=== PATIENT | male | born 2005 | race Caucasian/White ===

== ENCOUNTER 2024-01-15 07:52 | Inpatient (IN) ==
--- NOTE | 2024-01-15 08:43 | Emergency Department Note ---
Impression & Plan Acute appendicitis, Abdominal pain, Leukocytosis ED Provider Note NAME: ADAIR ANNE AGE: 18 SEX: M : 2005 ARRIVES VIA: Walk-In INFORMANT: Patient ED PROVIDER(S): Hema Ignacio DO CHIEF COMPLAINT: RLQ abd pain HPI: Patient is a 18-year-old male who presents the ER for periumbilical abdominal pain that started last night around 7 PM. It migrated to the right lower quadrant around 7 AM. Associate with nausea and 1 episode of vomiting. Denies any headache or change in vision. No chest pain or shortness of breath. No dysuria, urgency, or frequency. He has never had this pain before. No previous abdominal surgeries. Pain is worse with movement and improves with rest. ADDITIONAL HISTORY OBTAINED: Per HPI Chronic Medical/Social Conditions Affecting Care: Per HPI PAST MEDICAL HISTORY:See Below PAST SURGICAL HISTORY:See Below FAMILY HISTORY:See Below SOCIAL HISTORY:See Below HOME MEDICATIONS:See Below ALLERGIES:See Below VITALS:See Below PHYSICAL EXAMINATION: GENERAL: Sitting up in bed, alert, well appearing, well nourished, no distress, non-toxic EYE EXAM: normal conjunctiva. OROPHARYNX:mucous membranes are moist NECK: supple, no nuchal rigidity, no adenopathy, non-tender LUNGS: Clear to auscultation. Normal chest wall mechanics HEART: no murmurs, S1 normal and S2 normal ABDOMEN: abdomen soft, TTP in RLQ, normo-active bowel sounds, no masses, no rebound or guarding. UPPER EXTREMITIES: upper extremities are grossly normal. LOWER EXTREMITIES: No pitting edema. NEURO EXAM: Normal sensorium, cranial nerves II-XII grossly intact, normal speech, no gross weakness of arms, no gross weakness of legs. MEDICAL DECISION MAKING: Patient is a 18-year-old male who presents ER for right lower quadrant abdominal pain. IV was established blood work was obtained. Labs show leukocytosis of 14,000. No significant anemia. BMP with a slightly elevated glucose at 157. LFTs were unremarkable. T. bili was slightly up at 2.2. UA was clean. He was given IV fluids, IV morphine, IV Zofran and IV cefoxitin following the CT confirming acute appendicitis. He was updated bedside discussed with general surgery and taken to the OR. Consults/Care Managements Discussions: Per [facility] Triage Nursing notes reviewed. Limited review of prior medical records performed Vital Signs: reviewed and remarkable for tachy Differential diagnosis: Differential diagnoses includes but is not limited to gastritis, peptic ulcer disease, GERD, gallbladder disease, pancreatitis, small bowel obstruction, appendicitis, diverticulitis, hernia, urinary tract infection, torsion, perforation, trauma, infectious. ER treatment provided: See below Diagnostics interpreted by me include EKG and cardiac monitoring as listed below: -Cardiac Monitoring: An order was placed for continuous cardiac monitoring. The monitor shows a rate of 100 with sinus rhythm. -ECG: none -Laboratory studies:Interpreted by me as stated above in MDM and shown below. Imaging studies: Xrays: As interpreted by me:none CTs show: CT per my preliminary interpretation of the abdomen pelvis shows inflammation in the right lower quadrant CT abdomen pelvis was shows good appendicitis Procedures:none Critical Care: None Past Med/Surg History Surgical History (Updated 01/15/24 @ 14:29 by Jes Lester RN) History of laparoscopic appendectomy (01/15/24) Laparoscopic Appendectomy(Not Applicable) - Atif Voss, History of nasal surgery Social History Smoking Status: Never smoker Second Hand Exposure: No; Do You Dip or Chew Tobacco: No; Tobacco Cessation Education Requested by Patient: No Hx Alcohol Use: Yes Alcohol type: beer and hard liquor Hx Substance Use: No Preferred Language: Latvian 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: No Beliefs That Will Affect Care: None Current Living Situation: Other Current Living Situation Comment: college dormitory Other Information That Helps Us Care for You: No Feels Safe at Home: Yes Safety Concerns: Feels Safe At This Time Assistive Devices: Glasses Allergies Allergies Allergy/AdvReac Type Severity Reaction Status Date / Time pollen extracts Allergy Sneezing Verified 01/15/24 10:18 Home Meds Previous Rx's Medication Instructions Recorded oxycodone-acetaminophen 5 mg-325 1 - 2 tab PO .q4-6h PRN pain, for 01/15/24 mg tablet (Percocet) initial therapy, max 6 tabs per day #12 tabs Results & Data (ED) Vital Signs Vital Signs - 24 hr 01/15/24 08:03 01/15/24 09:38 01/15/24 10:04 Temperature 36.8 C Temperature Source Temporal Artery Scan Pulse Rate 101 H 88 78 Pulse Rate [Right Finger] Pulse Rhythm Regular Pulse Rhythm [Right Finger] Pulse Strength [Right Finger] Respiratory Rate 20 18 Respiratory Effort / Characteristics Non-Labored Spontaneous Respiratory Depth Normal Respiratory Pattern Blood Pressure 143/88 H 138/79 Blood Pressure [Left Arm] Blood Pressure Mean 106 Blood Pressure Mean [Left Arm] Blood Pressure Position [Left Arm] Pulse Oximetry 97 98 Oxygen Delivery Method Room Air Room Air Sepsis Recent Fever Within 48 Hours No Sepsis New/Unexplained Change in Mental Status No Sepsis Action Taken by Nursing No Action Required 01/15/24 10:10 Temperature 36.8 C Temperature Source Oral Pulse Rate Pulse Rate [Right Finger] 111 H Pulse Rhythm Pulse Rhythm [Right Finger] Regular Pulse Strength [Right Finger] Normal Respiratory Rate 20 Respiratory Effort / Characteristics Non-Labored Spontaneous Respiratory Depth Normal Respiratory Pattern Regular Blood Pressure Blood Pressure [Left Arm] 148/87 H Blood Pressure Mean Blood Pressure Mean [Left Arm] 107 Blood Pressure Position [Left Arm] Lying Pulse Oximetry 98 Oxygen Delivery Method Room Air Sepsis Recent Fever Within 48 Hours Sepsis New/Unexplained Change in Mental Status Sepsis Action Taken by Nursing Laboratory Data 01/15/24 08:20 01/15/24 08:20 Lab Results 01/15/24 01/15/24 Range/Units 08:20 09:04 WBC 14.64 H (4.8-10.8) K/ul RBC 5.71 (4.70-6.10) M/uL Hgb 16.7 (14.0-18.0) g/dl Hct 49.6 (42.0-52.0) % MCV 86.9 (80.0-100.0) fL MCH 29.2 (25.0-34.0) pg MCHC 33.7 (32.0-36.0) g/dL RDW Std Deviation 39.2 (36.4-46.3) fL RDW Coeff of Trevon 12.4 (11.5-14.5) % Plt Count 291 (130-400) K/uL MPV 9.3 L (9.4-12.4) fL Immature Gran % (Auto) 0.5 % Neut % (Auto) 87.4 % Lymph % (Auto) 7.7 % [place] % (Auto) 4.2 % Eos % (Auto) 0.1 % Baso % (Auto) 0.1 % Neut # (Auto) 12.79 H (1.40-6.50) K/uL Lymph # (Auto) 1.13 L (1.20-3.40) K/uL [place] # (Auto) 0.62 H (0.11-0.59) K/uL Eos # (Auto) 0.01 (0.00-0.50) K/uL Baso # (Auto) 0.02 (0.00-0.20) K/uL Immature Gran # (Auto) 0.07 (0.01-0.20) K/uL Sodium 136 (136-145) mmol/L Potassium 4.0 (3.5-5.1) mmol/L Chloride 103 (98-107) mmol/L Carbon Dioxide 23 (21-32) mmol/L Anion Gap 10 (3-11) BUN 13 (6-23) mg/dl Creatinine 0.83 (0.6-1.4) mg/dl Est Cr Clr Drug Dosing 179.8 ml/min Est GFR ( Amer) 147.8 ml/min Est GFR (Non-Af Amer) 127.6 ml/min BUN/Creatinine Ratio 15.7 (10-20) Glucose 157 H (70-99(Fasting)) mg/dl Calcium 9.7 (8.6-10.3) mg/dl Total Bilirubin 2.2 H (0.2-1.0) mg/dl AST 19 (13-39) U/L ALT 23 (7-52) U/L Alkaline Phosphatase 87 (34-104) U/L Total Protein 8.1 (6.0-8.3) gm/dl Albumin 4.8 (3.4-5.0) gm/dl Globulin 3.3 (2.5-4.0) gm/dl Albumin/Globulin Ratio 1.5 (0.9-2) Lipase 16 (11-82) U/L Urine Color Yellow Urine Appearance Cloudy A (Clear) Urine pH 5.5 (4.5-7.5) Ur Specific [place] 1.029 (1.000-1.030) Urine Protein 1+ H (Negative) Urine Glucose (UA) Negative (Negative) Urine Ketones 3+ H (Negative) Urine Blood Negative (Negative) Urine Nitrite Negative (Negative) Urine Bilirubin Negative (Negative) Urine Urobilinogen Negative (Negative) Ur Leukocyte Esterase Negative (Negative) Urine WBC (Auto) 1-5 (0-5) /hpf Urine RBC (Auto) 0-4 (0-4) /hpf U Hyaline Cast (Auto) 1-5 (0-5) /lpf U Epithel Cells (Auto) 10-20 H (0-5) /lpf Urine Bacteria (Auto) Negative (Negative) Administered Medications Lactated Ringer's (Lr) 1,000 mls @ 80 mls/hr IV .[id number] ENRIQUETA Stop: 02/14/24 13:03 Last Admin: 01/15/24 14:16 Dose: 80 mls/hr Documented By: [facility] Discontinued Medications Bupivacaine HCl/Epinephrine Bitart (Bupivacaine/Epinephrine 0.5% Mpf 1:200,000 30 Ml Vial) Confirm Administered Dose 30 ml .ROUTE .STK-MED ONE Stop: 01/15/24 09:56 Last Admin: 01/15/24 11:12 Dose: 30 ml Documented By: IVELISSE Sodium Chloride (Nss) 1,000 mls @ 999 mls/hr IV .Q1H1M ONE Stop: 01/15/24 09:41 Last Infusion: 01/15/24 14:55 Dose: Infused Documented By: [facility] Admin: 01/15/24 09:01 Dose: 999 mls/hr Documented By: ALEKS Cefoxitin Sodium (Mefoxin) 2,000 mg in 60 mls @ 100 mls/hr IV NOW STA Stop: 01/15/24 09:45 Last Infusion: 01/15/24 14:56 Dose: Infused Documented By: [facility] Admin: 01/15/24 09:23 Dose: 100 mls/hr Documented By: MMZ Lactated Ringer's (Lr) 1,000 mls @ 15 mls/hr IV .Q24H [facility] Stop: 02/14/24 10:14 Last Infusion: 01/15/24 10:31 Dose: Infused Documented By: Admin: 01/15/24 10:14 Dose: 15 mls/hr Documented By: ISHAAN Sodium Chloride (Nss) 1,000 mls @ 15 mls/hr IV .Q24H [facility] Stop: 01/16/24 10:59 Last Admin: 01/15/24 14:55 Dose: Not Given Documented By: [facility] Ioversol (Optiray 320 100ml) 94 ml IV ONCE ONE Stop: 01/15/24 08:50 Last Admin: 01/15/24 08:50 Dose: 94 ml Documented By: BRY Ketorolac Tromethamine (Ketorolac Tromethamine 15 Mg/Ml Vial) 15 mg IV NOW ONE Stop: 01/15/24 08:42 Last Admin: 01/15/24 08:59 Dose: 15 mg Documented By: NA Morphine Sulfate (Morphine Sulfate 10 Mg/Ml Carp/Vial) 6 mg IV NOW STA Stop: 01/15/24 09:11 Last Admin: 01/15/24 09:22 Dose: 6 mg Documented By: DERRICK Ondansetron HCl (Ondansetron Inj 2 Mg/Ml 2 Ml Vial) 4 mg IV NOW STA Stop: 01/15/24 08:42 Last Admin: 01/15/24 08:59 Dose: 4 mg Documented By: NA Imaging Data Radiologist's Impression: Abdomen/Pelvis CT 01/15/24 08:[address] WITH IV CONTRAST CT DOSE: 1560.12 mGy.cm HISTORY: Right lower quadrant abdominal pain. TECHNIQUE: Multiaxial CT images of the abdomen and pelvis were performed following the use of intravenous contrast. A dose lowering technique was utilized adhering to the principles of ALARA. COMPARISON STUDY: None. FINDINGS: The lung bases are clear. No pneumoperitoneum. No pneumatosis. No acute fractures identified. Bilateral L5 spondylolysis with associated grade 1 anterolisthesis. The liver, gallbladder, pancreas, spleen, adrenal glands, and kidneys are unremarkable. No hydronephrosis. Main portal vein is patent. Normal caliber abdominal aorta. No retroperitoneal or pelvic lymphadenopathy. The bladder is unremarkable. Trace pelvic free fluid. No evidence for a small bowel obstruction. Distended and thick-walled appendix with periappendiceal fat stranding consistent with acute appendicitis. The appendix measures up to 13 mm in diameter and appears contain a few small appendicoliths. Trace fluid within the right lower quadrant is noted. No perforation or abscess identified this time. IMPRESSION: Acute appendicitis as described above. ACT 112: Negative or not required by law. Electronically signed by: Rivera Dubose M.D. 01/15/2024 9:05 AM Discharge Plan Visit Data Chief Complaint: GI Assessment ED Provider: Hema Ignacio Discharge Problem: Acute appendicitis, Abdominal pain, Leukocytosis Discharge Instructions Interventions: ED Discharge Assessment Last Done: 01/15/24 10:04 Discharge Problem: Acute appendicitis Qualifiers: Acute appendicitis type: unspecified acute appendicitis type Qualified Code(s): K35.80 - Unspecified acute appendicitis Abdominal pain Qualifiers: Abdominal location: unspecified location Qualified Code(s): R10.9 - Unspecified abdominal pain Leukocytosis Qualifiers: Leukocytosis type: unspecified Qualified Code(s): D72.829 - Elevated white blood cell count, unspecified
[2024-01-15 08:47] LABS: Basophils # (auto) 0.02 K/uL (0.00-0.20); Basophils % (auto) 0.1 %; Eosinophils # (auto) 0.01 K/uL (0.00-0.50); Eosinophils % (auto) 0.1 %; Hematocrit (blood only) 49.6 % (42.0-52.0); Hemoglobin 16.7 g/dl (14.0-18.0); Immature Granulocytes # (auto) 0.07 K/uL (0.01-0.20); Immature Granulocytes % (auto) 0.5 %; Lymphocytes # (auto) 1.13 K/uL (1.20-3.40); Lymphocytes % (auto) 7.7 %; Mean Corpuscular Hemoglobin 29.2 pg (25.0-34.0); Mean Corpuscular Hgb Conc 33.7 g/dL (32.0-36.0); Mean Corpuscular Volume 86.9 fL (80.0-100.0); Mean Platelet Volume 9.3 fL (9.4-12.4); Monocytes # (auto) 0.62 K/uL (0.11-0.59); Monocytes % (auto) 4.2 %; Neutrophils # (auto) 12.79 K/uL (1.40-6.50); Neutrophils % (auto) 87.4 %; Platelet Count 291 K/uL (130-400); RDW Coefficient of Variation 12.4 % (11.5-14.5); RDW Standard Deviation 39.2 fL (36.4-46.3); Red Blood Count 5.71 M/uL (4.70-6.10); White Blood Count 14.64 K/ul (4.8-10.8)
[2024-01-15] MEDS: OPTIRAY 320 100ml IV ONE (08:50)
[2024-01-15 08:59] LABS: Albumin Globulin Ratio 1.5 (0.9-2); Albumin Level 4.8 gm/dl (3.4-5.0); BUN Creatinine Ratio 15.7 (10-20); Bilirubin,Total 2.2 mg/dl (0.2-1.0); Calcium 9.7 mg/dl (8.6-10.3); Creatinine Clr Calc Pharmacy 179.8 ml/min; Est GFR (African American) 147.8 ml/min; Est GFR (Non-African American) 127.6 ml/min; Globulin 3.3 gm/dl (2.5-4.0); Total Protein 8.1 gm/dl (6.0-8.3)
[2024-01-15] MEDS: ONDANSETRON INJ 2 MG/ML 2 ML VIAL IV STA (08:59)
[2024-01-15] MEDS: KETOROLAC TROMETHAMINE 15 MG/ML VIAL IV ONE (08:59)
[2024-01-15] MEDS: SODIUM CHLORIDE 0.9% 1,000 ML IV ONE (09:01)
--- NOTE | 2024-01-15 09:06 | CT Scan Report ---
ABDOMEN AND PELVIS CT WITH IV CONTRAST CT DOSE: 1560.12 mGy.cm HISTORY: Right lower quadrant abdominal pain. TECHNIQUE: Multiaxial CT images of the abdomen and pelvis were performed following the use of intrave nous contrast. A dose lowering technique was utilized adhering to the principles of ALARA. COMPARISON STUDY: None. FINDINGS: The lung bases are clear. No pneumoperitoneum. No pneumatosis. No acute fractures identifie d. Bilateral L5 spondylolysis with associated grade 1 anterolisthesis. The liver, gallbladder, pancre as, spleen, adrenal glands, and kidneys are unremarkable. No hydronephrosis. Main portal vein is lópez nt. Normal caliber abdominal aorta. No retroperitoneal or pelvic lymphadenopathy. The bladder is unre markable. Trace pelvic free fluid. No evidence for a small bowel obstruction. Distended and thick-wal led appendix with periappendiceal fat stranding consistent with acute appendicitis. The appendix mercedes ures up to 13 mm in diameter and appears contain a few small appendicoliths. Trace fluid within the r ight lower quadrant is noted. No perforation or abscess identified this time. IMPRESSION: Acute appendicitis as described above. ACT 112: Negative or not required by law. Electronically signed by: Rivera Dubose M.D. 01/15/2024 9:05 AM
[2024-01-15 09:18] LABS: Appearance Urine Cloudy (Clear); Bacteria Urine Automated Negative (Negative); Bilirubin Urine Negative (Negative); Blood Urine Negative (Negative); Color Urine Yellow; Glucose Urine UA Negative (Negative); Ketones Urine 3+ (Negative); Leukocyte Esterase Urine Negative (Negative); Nitrite Urine Negative (Negative); Protein Urine 1+ (Negative); RBC Urine Automated 0-4 /hpf (0-4); Specific Gravity Urine 1.029 (1.000-1.030); Urobilinogen Urine Negative (Negative); pH Urine 5.5 (4.5-7.5)
[2024-01-15] MEDS: MoRPHine SULFATE 10 MG/ML CARP/VIAL IV STA (09:22)
[2024-01-15] MEDS: cefOXitin 2,000 MG/60 ML BAG IV STA (09:23)
[2024-01-15] MEDS ORDERED: PROPOFOL IV EMULSION 10 MG/ML 20 ML VIAL IV ONE (09:39)
[2024-01-15] MEDS ORDERED: ROCURONIUM BROMIDE 10 MG/ML 5 ML VIAL IV ONE (09:39)
[2024-01-15] MEDS ORDERED: LIDOCAINE 2% 2 ML VIAL/AMP(20MG/ML) INFIL ONE (09:39)
[2024-01-15] MEDS ORDERED: ONDANSETRON INJ 2 MG/ML 2 ML VIAL ONE (09:39)
[2024-01-15] MEDS ORDERED: fentaNYL citrate PF 100 MCG/2 ML VIAL ONE ×2 (09:39→10:52)
[2024-01-15] MEDS ORDERED: DEXAMETHASONE SOD INJ 4 MG/ML VIAL ONE (09:39)
[2024-01-15] MEDS ORDERED: MIDAZOLAM HCL 1 MG/ML 2ML VIAL ONE (09:39)
[2024-01-15] MEDS ORDERED: ACETAMINOPHEN 1000 MG/100 ML IV IV ONE (09:41)
--- NOTE | 2024-01-15 09:42 | History & Physical Report ---
Date of Service January 15, 2024 Assessment & Plan (1) Acute appendicitis: Plan: This is a 18yM with no significant PMH who presents to the [facility] ED on 01/15/24 with complaints of abdominal pain since last night that has now localized to the RLQ this AM. Pain associated with nausea/vomiting. He presented to the ER for further evaluation. A CT a/p was performed that revealed evidence of acute appendicitis. Patient denies fevers/chills, no change in bowel habits, no CP/ SOB, and no prior abdominal surgical history. WBC 14.6, Hbg 16. Initial HR 100, now 80s. He is afebrile. On exam patient's abdomen is soft with ttp in the RLQ. History, labs/imaging, exam all consistent with acute appendicitis. Surgical intervention advised and patient agreeable with the plan. Keep NPO, pre-op abx given, and we will schedule patient for lap appy this AM with Dr. Voss. as above. hx imaging c/w acute appendicitis. discussed options /risks ( bleeding/infection/injury to another organ/dvt/pe/mi/cva etc...). questions answered. will proceed janessa with lap appy History of Present Illness Primary Care Provider: [facility] This is a 18yM with no significant PMH who presents to the [facility] ED on 01/15/24 with complaints of abdominal pain. Patient started last night, began in his belly button, but now localized to the RLQ. Rated his pain an 8/10 in severity prior to receiving pain medication. He also endorsed nausea/vomiting overnight. He presented to the ER for further evaluation. A CT a/p was performed that revealed evidence of acute appendicitis. Patient denies fevers/chills, no change in bowel habits, no CP/SOB, and no prior abdominal surgical history. Nothing to eat since yesterday evening. Allergies Allergy/AdvReac Type Severity Reaction Status Date / Time No Known Allergies Allergy Unverified 01/15/24 09:56 Past Med/Surg History Social History Smoking Status: Never smoker Feels Safe at Home: Yes Review of Systems Constitutional: no fever and no chills Respiratory: no dyspnea Cardiovascular: no chest pain Gastrointestinal: + abdominal pain, + nausea and + vomitin g; no change in bowel habits Physical Exam Physical Exam: awake/alert, no distress Constitutional: well developed and well nourished; no acute distress Respiratory: normal respiratory effort Gastrointestinal (Abdomen): Inspection/Auscultation: abdomen not distended Percussion/Palpation: + abdomen tender (ttp in rlq) and abdomen soft Results & Data Results & Data Vital Signs (Past 12 Hours) Vital Signs Temp Pulse Resp BP Pulse Ox O2 Del Method 01/15/24 09:38 88 01/15/24 08:03 98.2 F 101 H 20 143/88 H 97 Room Air Diagnostic Findings ABDOMEN AND PELVIS CT WITH IV CONTRAST CT DOSE: 1560.12 mGy.cm HISTORY: Right lower quadrant abdominal pain. TECHNIQUE: Multiaxial CT images of the abdomen and pelvis were performed following the use of intravenous contrast. A dose lowering technique was utilized adhering to the principles of ALARA. COMPARISON STUDY: None. FINDINGS: The lung bases are clear. No pneumoperitoneum. No pneumatosis. No acute fractures identified. Bilateral L5 spondylolysis with associated grade 1 anterolisthesis. The liver, gallbladder, pancreas, spleen, adrenal glands, and kidneys are unremarkable. No hydronephrosis. Main portal vein is patent. Normal caliber abdominal aorta. No retroperitoneal or pelvic lymphadenopathy. The bladder is unremarkable. Trace pelvic free fluid. No evidence for a small bowel obstruction. Distended and thick-walled appendix with periappendiceal fat stranding consistent with acute appendicitis. The appendix measures up to 13 mm in diameter and appears contain a few small appendicoliths. Trace fluid within the right lower quadrant is noted. No perforation or abscess identified this time. IMPRESSION: Acute appendicitis as described above. ACT 112: Negative or not required by law. Electronically signed by: Rivera Dubose M.D. 01/15/2024 9:05 AM PG Care Time/CCT Total # of Minutes Spent Total Time Spent with Patient: Total time spent is greater than 50% in coordination of care (as documented) at patient's floor/unit and/or counseling patient: Coding Level of Care Code 46595 INT INP/OBS CARE 2/55MIN Diagnoses Acute appendicitis K35.80
--- NOTE | 2024-01-15 10:01 | Anesthesiology Consultation ---
Date of Service January 15, 2024 Assessment & Plan (1) Encounter for pre-operative examination: Chart Review Chart Review: Acceptable Risk for Surgery and Patient NOT seen in Pre Admission Testing Consults Requested none History Surgery Operation Date: 01/15/24 08:20 Proposed Procedures p Laparoscopic Appendectomy - Atif Voss DO Height/Weight Height: 5 ft 10 in Weight: 112.5 kg Allergies Allergy/AdvReac Type Severity Reaction Status Date / Time No Known Allergies Allergy Unverified 01/15/24 09:56 Social History Smoking Status: Never smoker Physical Exam Vital Signs Last Vital Signs Temp 98.2 F 01/15/24 08:03 Pulse 101 H 01/15/24 08:03 Resp 20 01/15/24 08:03 BP 143/88 H 01/15/24 08:03 Pulse Ox 97 01/15/24 08:03 O2 Del Method Room Air 01/15/24 08:03 Testing Laboratory Results 01/15/24 08:20 01/15/24 08:20 Urine Color Yellow 01/15/24 09:04 Urine Appearance Cloudy (Clear) A 01/15/24 09:04 Urine pH 5.5 (4.5-7.5) 01/15/24 09:04 Ur Specific [place] 1.029 (1.000-1.030) 01/15/24 09:04 Urine Protein 1+ (Negative) H 01/15/24 09:04 Urine Glucose (UA) Negative (Negative) 01/15/24 09:04 Urine Ketones 3+ (Negative) H 01/15/24 09:04 Urine Nitrite Negative (Negative) 01/15/24 09:04 Ur Leukocyte Esterase Negative (Negative) 01/15/24 09:04 Urine WBC (Auto) 1-5 /hpf (0-5) 01/15/24 09:04 Urine RBC (Auto) 0-4 /hpf (0-4) 01/15/24 09:04 U Hyaline Cast (Auto) 1-5 /lpf (0-5) 01/15/24 09:04 U Epithel Cells (Auto) 10-20 /lpf (0-5) H 01/15/24 09:04 Urine Bacteria (Auto) Negative (Negative) 01/15/24 09:04
[2024-01-15] MEDS: LACTATED RINGER'S 1,000 ML IV SCH ×2 (10:14→14:16)
[2024-01-15] MEDS ORDERED: ONDANSETRON INJ 2 MG/ML 2 ML VIAL IV PRN (10:23)
[2024-01-15] MEDS ORDERED: ePHEDrine sulfate 50 MG/ML AMP IV PRN (10:23)
[2024-01-15] MEDS ORDERED: ATROPINE SULFATE 0.1 MG/ML 10ML SYR IV PRN (10:23)
[2024-01-15] MEDS ORDERED: fentaNYL citrate PF 100 MCG/2 ML VIAL IV PRN (10:23)
[2024-01-15] MEDS ORDERED: oxyCODONE/ACETAMINOPHEN 5mg/325mg TAB PO PRN (10:57)
[2024-01-15] MEDS ORDERED: MoRPHine SULFATE 2 MG/ML CARP IV PRN (10:57)
[2024-01-15] MEDS ORDERED: KETOROLAC 30 MG/ML VIAL ONE (11:11)
[2024-01-15] MEDS ORDERED: SUGAMMADEX SODIUM 200 MG/2 ML VIAL IV ONE (11:12)
[2024-01-15] MEDS: BUPIVACAINE/EPINEPHRINE 0.5% MPF 1:200,000 30 ML VIAL ONE (11:12)
--- NOTE | 2024-01-15 11:19 | Operative Report ---
PG Post Operative Report Pre & Post Diagnosis Operation Date: 01/15/24 08:20 Pre-Op Diagnosis: Acute appendicitis Post-Op Diagnosis: Acute appendicitis with perforation I identified the patient and participated in the time-out.: Yes Procedure Operation Date: 01/15/24 08:20 Actual Procedures p Laparoscopic Appendectomy(Not Applicable) - Atif Voss DO Surgeon Atif Voss DO Chief Scientific Officer artie sexton Estimated Blood Loss 10 Findings Consistent with Post-Op Diagnosis Specimens appendix Description of Procedure After informed consent was obtained the patient was taken to the operating room and placed in supine position. After successful intubation a Bean catheter was placed and the left arm was tucked. A Bean catheter was inserted sterilely. I began by making a periumbilical incision with an 11 blade scalpel and carried this down through the soft tissue using electrocautery. The anterior rectus fascia was opened using electrocautery and 2 #0 Vicryl stay sutures were placed. The peritoneum was elevated using hemostats and incised under direct vision using a Metzenbaum scissor. A finger sweep was performed. A 12 mm Mccarthy trocar was placed and the abdomen was insufflated to 18 mmHg. A laparoscope was inserted and the abdomen was examined in 360. A suprapubic 5 mm port and a left lower quadrant 12 mm port were placed under direct vision. The patient was air planed to the left as well as placed in a slight Trendelenburg position. We began by looking in the right lower quadrant. We were able to readily identify the appendix and it was grossly inflamed. When I peeled back the omentum there was a perforation in the tip. There is no stool spillage but there was a fair amount of purulent fluid in the right lower quadrant as well as pelvis. We immediately irrigated and suctioned this out. I was able to use primarily blunt dissection to pull the appendix away from the right lower quadrant sidewall. I was then able to use a SATYA brown cartridge stapler to transect first the mesentery of the appendix followed by the appendix itself at its base with the cecum. It was then placed into an Endo Catch bag and removed from the camera port site. We thoroughly irrigated the right lower quadrant as well as the pelvis. There was adequate hemostasis. I ran the small bowel backwards from the terminal ileum for about 6 feet all of which other than some secondary inflammatory response was normal. All the peritoneal surfaces were normal. Small/ large bowel, liver, stomach etc. all appeared grossly normal. We did a final irrigation and then removed all the trochars and desufflated the abdomen. The fascia of the camera port was closed using 0 Vicryl in [id number] fashi on. Wounds were all irrigated and closed using 4-0 Monocryl. Marcaine was injected around them for postoperative analgesia and skin glue used as a dressing. The patient was awakened extubated and transferred to recovery in stable condition. My PORCELAIN ENAMEL REPAIRER statistical assistant was present through the entire case. She assisted with prepping the patient and helped with exposure for port placement, helped run the camera and helped with fascial/wound closure at the end of the procedure as well as dressing placement. I attest to the content of the Intraoperative Record and any orders documented therein. Any exceptions are noted below. I attest to the content of the Intraoperative Record and any orders documented therein. Any exceptions are noted below.
--- NOTE | 2024-01-15 12:13 | Anesthesiology Progress Note ---
Date of Service January 15, 2024 Anesthesia Post Procedure Vital Signs Vital Signs: Temp Pulse Pulse Pulse Resp BP BP 01/15/24 12:00 99.1 F 104 H 21 140/74 01/15/24 11:50 107 H 22 150/78 H 01/15/24 11:40 108 H 20 146/77 H 01/15/24 11:30 97.9 F 114 H 14 145/53 H 01/15/24 10:10 98.2 F 111 H 20 148/87 H 01/15/24 10:04 78 18 138/79 01/15/24 09:38 88 01/15/24 08:03 98.2 F 101 H 20 143/88 H Pulse Ox O2 Del Method O2 Flow Rate 01/15/24 12:00 94 Room Air 01/15/24 11:50 94 Room Air 01/15/24 11:40 97 Oxymask 6 01/15/24 11:30 95 Oxymask 10 01/15/24 10:10 98 Room Air 01/15/24 10:04 98 Room Air 01/15/24 09:38 01/15/24 08:03 97 Room Air Transfer of Care Handoff Completed per policy Notes Mental Status: alert / awake / arousable and participated in evaluation Patient Amnestic to Procedure: Yes Nausea / Vomiting: adequately controlled Pain: adequately controlled Airway Patency, RR, SpO2: stable & adequate BP & HR: stable & adequate Hydration State: stable & adequate Anesthetic Complications: no major complications apparent and Pt Satisfied with anesthetic care
[2024-01-15] MEDS: SODIUM CHLORIDE 0.9% 1,000 ML IV SCH (14:55)
[2024-01-15] MEDS: PIPERACILLIN/TAZOBACTAM 4.5 GM in DEXTROSE 5% MINI-B 100 ML IV SCH (16:05)
[2024-01-15] MEDS: ACETAMINOPHEN 325 MG TAB PO PRN (16:54)
[2024-01-15] MEDS: ONDANSETRON INJ 2 MG/ML 2 ML VIAL IV PRN (17:20)
[2024-01-15] MEDS: oxyCODONE/ACETAMINOPHEN 5mg/325mg TAB PO PRN (22:27)
[2024-01-16 07:43] LABS: Basophils # (auto) 0.01 K/uL (0.00-0.20); Basophils % (auto) 0.1 %; Eosinophils # (auto) 0.01 K/uL (0.00-0.50); Eosinophils % (auto) 0.1 %; Hematocrit (blood only) 35.8 % (42.0-52.0); Hemoglobin 12.2 g/dl (14.0-18.0); Immature Granulocytes # (auto) 0.04 K/uL (0.01-0.20); Immature Granulocytes % (auto) 0.3 %; Lymphocytes # (auto) 1.31 K/uL (1.20-3.40); Lymphocytes % (auto) 10.7 %; Mean Corpuscular Hemoglobin 29.6 pg (25.0-34.0); Mean Corpuscular Hgb Conc 34.1 g/dL (32.0-36.0); Mean Corpuscular Volume 86.9 fL (80.0-100.0); Mean Platelet Volume 9.4 fL (9.4-12.4); Monocytes # (auto) 1.18 K/uL (0.11-0.59); Monocytes % (auto) 9.6 %; Neutrophils % (auto) 79.2 %; Platelet Count 254 K/uL (130-400); RDW Coefficient of Variation 12.7 % (11.5-14.5); RDW Standard Deviation 40.5 fL (36.4-46.3); Red Blood Count 4.12 M/uL (4.70-6.10); White Blood Count 12.25 K/ul (4.8-10.8)
[2024-01-16 08:43] LABS: Calcium 8.8 mg/dl (8.6-10.3); Potassium 3.9 mmol/L (3.5-5.1)
[2024-01-16 08:49] LABS: BUN Creatinine Ratio 14.4 (10-20); Creatinine Clr Calc Pharmacy 165.8 ml/min; Est GFR (Non-African American) 123.4 ml/min
--- NOTE | 2024-01-16 08:52 | Surgery Progress Note ---
Date of Service January 16, 2024 Assessment & Plan (1) Acute appendicitis: Plan: Patient reports he vomited last night clear liquids was given antiemetic and has been ok throughout the night has been tolerating sips of water denies nausea currently If vomits this AM will make NPO and give bowel rest Temp this AM 100.6 WBC 12 down from yesterday 14 Continue IV zosyn ambulating in halls without difficulty Dermabond to port sites CDI will continue to [facility] as above. doing ok. had some emesis last night. low grade temp.... likely mild ileus. will keep another 24 hours. stay on IV antibiotics and clears for now. recheck wbc tomorrow. Admission and Anticipated Discharge Date Admission Date: January 15, 2024 Subjective abd pain 3/10 vomited last night clear liquids denies fever, chills, cp , sob Review of Systems Constitutional: no chills Respiratory: no dyspnea Cardiovascular: no chest pain Gastrointestinal: + abdominal pain, + nausea and + vomitin g; no change in bowel habits Musculoskeletal: no muscle weakness Physical Exam Constitutional: no acute distress Respiratory: normal respiratory effort; no respiratory distress Cardiovascular: Rate/Rhythm: regular rate Gastrointestinal (Abdomen): Inspection/Auscultation: abdomen not distended Percussion/Palpation: + abdomen tender and abdomen soft Neurologic: moves all extremities Psychiatric: Orientation: alert and oriented x 3 Results & Data Vital Signs (Past 12 Hours) Vital Signs Temp Pulse Resp BP Pulse Ox O2 Del Method 01/16/24 07:53 100.6 F H 105 H 16 137/76 94 Room Air 01/16/24 02:53 98.3 F 96 H 16 128/62 93 Room Air 01/15/24 23:00 99.2 F 109 H 16 141/81 H 94 Room Air Results Complete Blood Count Results: RBC 4.12 M/uL (4.70-6.10) L 01/16/24 WBC 12.25 K/ul (4.8-10.8) H 01/16/24 Hgb 12.2 g/dl (14.0-18.0) L 01/16/24 Hct 35.8 % (42.0-52.0) L 01/16/24 Plt Count 254 K/uL (130-400) 01/16/24 Results BMP Results: Sodium 139 mmol/L (136-145) 01/16/24 Potassium 3.9 mmol/L (3.5-5.1) 01/16/24 Chloride 105 mmol/L (98-107) 01/16/24 Carbon Dioxide 28 mmol/L (21-32) 01/16/24 Anion Gap 6 (3-11) 01/16/24 BUN 13 mg/dl (6-23) 01/16/24 Creatinine 0.90 mg/dl (0.6-1.4) 01/16/24 Glucose 118 mg/dl (70-99(Fasting)) H 01/16/24 PG Care Time/CCT Total # of Minutes Spent Total Time Spent with Patient: Total time spent is greater than 50% in coordination of care (as documented) at patient's floor/unit and/or counseling patient: Coding Level of Care Code 85149 Post Operative Follow-Up Diagnoses Acute appendicitis K35.80 Acute appendicitis type: unspecified acute appendicitis type (1) Acute appendicitis Acute appendicitis type: unspecified acute appendicitis type Qualified Code(s): K35.80 - Unspecified acute appendicitis
[2024-01-16] MEDS ORDERED: PIPERACILLIN/TAZOBACTAM 4.5 GM in DEXTROSE 5% MINI-B 100 ML IV SCH (09:30)
[2024-01-17 07:43] LABS: Basophils # (auto) 0.01 K/uL (0.00-0.20); Basophils % (auto) 0.1 %; Eosinophils # (auto) 0.04 K/uL (0.00-0.50); Eosinophils % (auto) 0.4 %; Hematocrit (blood only) 32.9 % (42.0-52.0); Hemoglobin 11.1 g/dl (14.0-18.0); Immature Granulocytes # (auto) 0.05 K/uL (0.01-0.20); Immature Granulocytes % (auto) 0.5 %; Lymphocytes # (auto) 1.86 K/uL (1.20-3.40); Lymphocytes % (auto) 17.6 %; Mean Corpuscular Hemoglobin 29.9 pg (25.0-34.0); Mean Corpuscular Hgb Conc 33.7 g/dL (32.0-36.0); Mean Corpuscular Volume 88.7 fL (80.0-100.0); Mean Platelet Volume 9.2 fL (9.4-12.4); Monocytes # (auto) 0.75 K/uL (0.11-0.59); Monocytes % (auto) 7.1 %; Neutrophils # (auto) 7.88 K/uL (1.40-6.50); Neutrophils % (auto) 74.3 %; Platelet Count 214 K/uL (130-400); RDW Coefficient of Variation 12.2 % (11.5-14.5); Red Blood Count 3.71 M/uL (4.70-6.10); White Blood Count 10.59 K/ul (4.8-10.8)
[2024-01-17 08:04] LABS: BUN Creatinine Ratio 11.2 (10-20); Calcium 8.8 mg/dl (8.6-10.3); Creatinine Clr Calc Pharmacy 152.3 ml/min; Est GFR (Non-African American) 111.3 ml/min; Potassium 3.8 mmol/L (3.5-5.1)
--- NOTE | 2024-01-17 12:16 | Surgery Progress Note ---
<Statement entered by Nicholas Laureano DO - 01/18/24 14:56> This case was discussed with the surgical PA Date of Service January 17, 2024 Assessment & Plan (1) Acute appendicitis: Plan: POD#1 laparoscopic appendectomy WBC normalized to 10.5 (12). No fevers overnight He denies nausea/vomiting, tolerates liquids. + gas/BM per patient Will advance to regular diet Pain manageable with Tylenol at this point If does well after lunch, pain controlled he may discharge to home Will prescribe course of PO abx to complete Dispo instructions reviewed, f/u in the office within 2 weeks Admission and Anticipated Discharge Date Admission Date: January 15, 2024 Subjective Patient says he is bored in the hospital. Currently tolerating liquids without nausea/vomiting. He is asking for more to eat. Reports + gas and BMs. Says pain is controlled, just hurts when pressed upon. Physical Exam Physical Exam: awake/alert, no distress Respiratory: normal respiratory effort Gastrointestinal (Abdomen): Inspection/Auscultation: + abdominal surgical incision (c/d/i with skin glue, no signs of infection) Percussion/Palpation: + abdomen tender (ttp in the RLQ and LLQ) and abdomen soft Results & Data Vital Signs (Past 12 Hours) Vital Signs Temp Pulse Resp BP Pulse Ox O2 Del Method 01/17/24 07:55 Room Air 01/17/24 07:22 98.4 F 109 H 18 126/68 95 Room Air PG Care Time/CCT Total # of Minutes Spent Total Time Spent with Patient: Total time spent is greater than 50% in coordination of care (as documented) at patient's floor/unit and/or counseling patient: Coding Level of Care Code 31727 Post Operative Follow-Up Diagnoses Acute appendicitis K35.80 Acute appendicitis type: unspecified acute appendicitis type (1) Acute appendicitis Acute appendicitis type: unspecified acute appendicitis type Qualified Code(s): K35.80 - Unspecified acute appendicitis
--- NOTE | 2024-01-21 12:50 | Discharge Summary ---
Date of Service January 17, 2024 Admission HPI Per Admitting Provider This is a 18yM with no significant PMH who presents to the [facility] ED on 01/15/24 with complaints of abdominal pain. Patient started last night, began in his belly button, but now localized to the RLQ. Rated his pain an 8/10 in severity prior to receiving pain medication. He also endorsed nausea/vomiting overnight. He presented to the ER for further evaluation. A CT a/p was performed that revealed evidence of acute appendicitis. Patient denies fevers/chills, no change in bowel habits, no CP/SOB, and no prior abdominal surgical history. Nothing to eat since yesterday evening. Principal Diagnosis acute appendicitis Discharge Exam Constitutional no acute distress Respiratory normal respiratory effort; no respiratory distress Cardiovascular Rate/Rhythm: regular rate Gastrointestinal (Abdomen) Inspection/Auscultation: abdomen not distended Percussion/Palpation: + abdomen tender and abdomen soft Neurologic moves all extremities Psychiatric Orientation: alert and oriented x 3 Discharge Data Allergies Allergy/AdvReac Type Severity Reaction Status Date / Time pollen extracts Allergy Sneezing Verified 01/15/24 10:18 Consultations 01/15/24 09:10 ED Decision to Admit Stat Procedures Performed Operation Date: 01/15/24 08:20 Actual Procedures p Laparoscopic Appendectomy(Not Applicable) - Atif Voss, Ordered Studies 01/15/24 08:41 CT Abd and Pelvis [CT abd pelvis IV con only] Stat Hospital Course (1) Acute appendicitis: Patient is a pleasant 18 yo male that presented to the [facility] ER 01/15/24 with c/o abdominal pain. A CT scan of the abdomen/pelvis showed acute appendicitis. He was started on IV antibiotics and taken to the OR for a laparoscopic appendectomy with Dr. Voss. Intraoperatively it was noted that the appendix had a perforation. Post operatively he was admitted to the hospital for continued IV antibiotics, care and observation. His diet was advanced to regular and his pain was controlled with PO medication. On post operative day two he was deemed stable for discharge, WBC wnl, VSS. He was given a prescription for a 10 day course of antibiotics and pain medication. He verbalized understanding of discharge instructions, return precautions and follow up appointments. He was discharged on 01/17/24. Total Time Total Time Spent Total Time Spent (In Minutes): 25 Discharge Plan Discharge Items Patient Disposition: Home - Self-Care Reason For Visit: s/p appendectomy Discharge Diagnosis: laparoscopic appendectomy Activity: Per Instructions section Lifting: No more than 10 pounds Bathing Comment: may shower starting 01/16/24; no soaking in tubs/pools x 2 weeks Exercise/Sports: Wait until after follow-up appointment Non-emergency contact: Surgeon Call non-emergency contact if: you have any medication questions, your symptoms worsen, your pain is worsening, you have a fever, your temperature is above 101.5, your wound has increased redness, your wound has increased drainage and your wound pain has increased Follow-up/Referrals: Atif Voss, DO [Surgeon] - 01/29/24 11:30 am (Please call to schedule follow up in clinic within 2 weeks ) PCP,NO [Physician] - Diet: Regular Addtl Attending Provider Instructions: You have skin glue over your incisions called dermabond. you may shower with this on. It will tend to dissolve and fall off within a couple weeks. Do not pick at the skin glue You may purchase Ibuprofen over the counter if needed for additional pain control over the next few days. Take per manufacturers instructions Please complete the full course of antibiotic prescribed to you Pending Studies at Discharge: Yes Studies:: surgical pathology Stand-Alone Forms: My [facility] [employer], Work/School Release Medications and DC Order Prescriptions: New oxycodone-acetaminophen [Percocet] 5-325 mg tablet 1 - 2 tab PO .q4-6h PRN (Reason: pain, for initial therapy, max 6 tabs per day) Qty: 12 0RF amoxicillin-pot clavulanate 875-125 mg tablet 1 tab PO Q12H MDD 2 10 Days Qty: 20 0RF Discharge Orders: Discharge Order (Routine); Ordered 01/17/24 Ordered By: Thelma Wilkinson/Other Patient Handouts: Appendectomy, What Is Appendicitis?, Surgery for Appendicitis Admission Data Admit Date/Time: 01/15/24 11:25 Attending Provider: Atif Voss Admit Provider: Atif Voss Primary Care Provider: [place] Other Providers: Atif Voss Other Interventions: Discharge Summary Assessment (RN) Last Done: 01/17/24 13:06 Coding Level of Care Code 83403 IN/OBS DISCH 30 MIN/LESS Diagnoses Acute appendicitis K35.80 Acute appendicitis type: unspecified acute appendicitis type
== END 2024-01-17 13:53 | disposition home or self-care (01) | DRG 398 ==
LOC: ED 07:52 → 3W 10:10 → OR 10:31 → 3W 11:25

== ENCOUNTER 2024-01-23 18:59 | Inpatient (IN) ==
--- NOTE | 2024-01-23 19:32 | Emergency Department Note ---
History of Present Illness General Chief Complaint: Abdominal Pain Stated Complaint: POST-OP APPENDECTOMY, PELVIC PAIN, DIARRHEA Time Seen by Provider: 01/23/24 19:14 History of Present Illness Provider Complaint: abdominal pain Onset (ago): 5 day(s) Location: RLQ and suprapubic Severity: moderate Maximum Pain Intensity: 7 Current Pain Intensity: 7 Quality: + stabbing and + sharp Relieved By: + nothing Exacerbated By: + nothing Context: + recent antibiotic use (Currently on amoxicillin) and + recent surgery/procedure (Appendectomy on January 15, 2024); no foreign travel, no possible food poisoning, no sick contacts or no recent injury Associated Symptoms: + nausea, + vomiting, + diarrhea, + fever and + chills; no constipation, no dysuria, no hematemesis, no hematochezia, no melena, no hematuria, no headache, no chest pain and no breathing difficulty Home Medications Medication Instructions Recorded Confirmed Type oxycodone-acetaminophen 5 mg-325 1 - 2 tab PO .q4-6h PRN pain, for 01/15/24 Rx mg tablet (Percocet) initial therapy, max 6 tabs per day #12 tabs amoxicillin 875 mg-potassium 1 tab PO Q12H infection 10 days 01/16/24 Rx clavulanate 125 mg tablet #20 tabs Allergies Allergy/AdvReac Type Severity Reaction Status Date / Time pollen extracts Allergy Sneezing Verified 01/15/24 10:18 Past Med/Surg History Medical History No pertinent family history No pertinent past medical history Surgical History History of laparoscopic appendectomy (01/15/24) Laparoscopic Appendectomy(Not Applicable) - Atif Voss DO History of nasal surgery Social History Smoking Status: Never smoker Second Hand Exposure: No; Do You Dip or Chew Tobacco: No; Hx Alcohol Use: Yes Alcohol type: beer and hard liquor Hx Substance Use: No Preferred Language: Tanzanian Communication Ability: Effective Lacrosse Coach Required: No Beliefs That Will Affect Care: None Current Living Situation: Other Current Living Situation Comment: [employer] [facility] Feels Safe at Home: Yes Assistive Devices: None Physical Exam 2 Vital Signs: Vital Signs - 24 hr 01/23/24 19:07 01/23/24 19:57 01/23/24 20:00 Temperature 38.5 C H Temperature Source Oral Pulse Rate 133 H 117 H Pulse Rate [Left A pical] 117 H Respiratory Rate 18 18 15 Respiratory Effort / Characteristics Non-Labored Sponta neous Respiratory Depth Normal Respiratory Patter n Regular Blood Pressure 150/87 H 144/83 H Blood Pressure [Ri ght Arm] 143/87 H Blood Pressure Jami n 108 103 Blood Pressure Jami n [Right Arm] 105 Blood Pressure Pos ition Sitting Pulse Oximetry 97 97 98 Oxygen Delivery Me thod Room Air Room Air Room Air Sepsis Recent Feve r Within 48 Hours Yes Sepsis New/Unexpla ined Change in Men avel Status N/A Sepsis Action Take n by Nursing Physician Notified 01/23/24 20:11 01/23/24 20:30 Temperature Temperature Source Pulse Rate 117 H 120 H Pulse Rate [Left A pical] Respiratory Rate 21 Respiratory Effort / Characteristics Respiratory Depth Respiratory Patter n Blood Pressure 136/96 Blood Pressure [Ri ght Arm] Blood Pressure Jami n 109 Blood Pressure Jami n [Right Arm] Blood Pressure Pos ition Pulse Oximetry 99 Oxygen Delivery Me thod Room Air Sepsis Recent Feve r Within 48 Hours Sepsis New/Unexpla ined Change in Men avel Status Sepsis Action Take n by Nursing Physical Exam: Physical Exam HENT: Exam performed. -Head: Normocephalic and atraumatic. -Right Ear: External ear normal. No mastoid erythema -Left Ear: External ear normal. No mastoid erythema -Mouth/Throat: The oropharynx is clear and moist. No trismus in the jaw. No dental abscesses or uvula swelling. No oropharyngeal exudate or tonsillar abscesses. EYES: Conjunctivae and EOM are normal.Right eye exhibits no discharge. Left eye exhibits no discharge. No scleral icterus. NECK: Normal range of motion. Neck supple. No JVD present. No tracheal deviation and normal range of motion present. CV: Tachycardic rate, regular rhythm, normal heart sounds and intact distal pulses. There is no peripheral edema. Palpable radial pulses bue. PULM/CHEST: Effort normal and breath sounds normal. No respiratory distress. No stridor. She has no wheezes. She has no rales. -Chest Wall: She exhibits no tenderness. ABD: The abdomen is soft. Mild distension. There is tenderness in the suprapubic area and right lower quadrant. There is no rebound, no guarding : Circumcised. No lesions over the genitalia. No pain on palpation of the right or left testicle. No inguinal hernias bilaterally. MUSC/SKEL: Normal range of motion. There is no peripheral edema, tenderness or deformity. NEURO: Motor and sensation grossly intact. SKIN: Skin is warm and dry. She is not diaphoretic. PSYCH: She has a normal mood and affect. Behavior is normal. Judgment and thought content normal. Course Course 1913: The patient was evaluated in room C11. A complete history and physical exam was performed Cardiac monitoring: An order was placed for continuous cardiac monitoring. The monitor shows a rate of 130 with sinus tachycardia rhythm interpreted by ks Sepsis protocols initiated. Mason performed the patient be taken to CT scan. 1941: Spoke with general surgery Dr. Gutierrez who states to call her back with the CT results and she will evaluate the patient. 2009: Patient has a leukocytosis of 27.99. Lactic acid is within normal limits. Received a call from stat rad radiology Dr. Belcher. He stated that the patient had a 24 cm postoperative abscess going from the appendectomy site into the lower pelvis. Will contact general surgery and IR. Austin ordered for the patient. 2021: Spoke with Dr. Gutierrez who states she is parking and will be in to evaluate the patient. 2026: Received a [place] text message via secretary to board of commissioners from HELDER Wynne who stated he was unable to visualize the images at home and to speak with attending radiologist to discuss if this abscess can be drained here. 2034: Dr. Gutierrez at bedside evaluating patient. Spoke with Dr. Gamez radiology. We were able to connect Dr. Matt Gamez and I via telephone and Dr. Gamez reviewed the patient's images and stated that the patient could be kept here and they could drain the patient in the morning. Dr. Gutierrez was agreeable with this plan stated she would start the patient on IV antibiotics overnight. Dr. Gutierrez states she will put in orders for the patient and states to admit the patient to Dr. Voss service the patient's primary surgeon. 2039: Spoke with HELDER Wilson who states he spoke with radiology and they will plan on draining the patient in the morning. He asked that coagulation studies be sent on the patient and the patient be kept n.p.o. after midnight, Dr. Gutierrez was made aware. Administered Medications Sodium Chloride (Nss) 1,000 mls @ 999 mls/hr IV .Q1H1M ENRIQUETA Stop: 01/23/24 21:15 Last Admin: 01/23/24 20:21 Dose: 999 mls/hr Documented By: Infusion: 01/23/24 20:21 Dose: Infused Documented By: Admin: 01/23/24 19:54 Dose: 999 mls/hr Documented By: LEONOR Discontinued Medications Piperacillin Sod/Tazobactam Sod (Zosyn) 4.5 gm in 120 mls @ 240 mls/hr IV NOW ONE Stop: 01/23/24 20:40 Last Admin: 01/23/24 20:21 Dose: 240 mls/hr Documented By: DELILAH Ioversol (Optiray 320 100ml) 89 ml IV ONCE ONE Stop: 01/23/24 19:40 Last Admin: 01/23/24 19:40 Dose: 89 ml Documented By: BABAR Medical Decision Making Laboratory Data Attestation: I reviewed the patient's lab results. 01/23/24 19:20 01/23/24 19:20 Lab Results 01/23/24 01/23/24 01/23/24 Range/Units 19:20 19:32 19:55 WBC 27.99 H (4.8-10.8) K/ul RBC 4.40 L (4.70-6.10) M/uL Hgb 12.9 L (14.0-18.0) g/dl POC Hgb 13.6 L (14.0-18.0) g/dl Hct 37.7 L (42.0-52.0) % POC Hct 40 L (42-52) % MCV 85.7 (80.0-100.0) fL MCH 29.3 (25.0-34.0) pg MCHC 34.2 (32.0-36.0) g/dL RDW Std Deviation 37.5 (36.4-46.3) fL RDW Coeff of Trevon 11.9 (11.5-14.5) % Plt Count 465 H (130-400) K/uL MPV 8.9 L (9.4-12.4) fL Immature Gran % (Auto) 0.9 % Neut % (Auto) 84.5 % Lymph % (Auto) 6.8 % [place] % (Auto) 7.6 % Eos % (Auto) 0.0 % Baso % (Auto) 0.2 % Neut # (Auto) 23.63 H (1.40-6.50) K/uL Lymph # (Auto) 1.90 (1.20-3.40) K/uL [place] # (Auto) 2.13 H (0.11-0.59) K/uL Eos # (Auto) 0.01 (0.00-0.50) K/uL Baso # (Auto) 0.06 (0.00-0.20) K/uL Immature Gran # (Auto) 0.26 H (0.01-0.20) K/uL PT 12.5 H (9.0-12.0) Seconds INR 1.2 H (0.9-1.1) APTT 32 H (21-31) Seconds PTT Ratio 1.1 VBG pH (7.36-7.41) VBG pCO2 (38-50) mmHg VBG pO2 mmHg VBG HCO3 mmol/L VBG O2 Saturation % VBG Base Excess mEq/L POC Sodium 132 L (135-144) mmol/L Sodium 131 L (136-145) mmol/L POC Potassium 3.7 (3.3-5.0) mmol/L Potassium 3.7 (3.5-5.1) mmol/L POC Chloride 96 L (101-112) mmol/L Chloride 96 L (98-107) mmol/L Carbon Dioxide 25 (21-32) mmol/L POC Total CO2 23 L (24-31) mmol/L Anion Gap 10 (3-11) POC Anion Gap 17.0 (16-25) mmol/L POC BUN 8 (7-18) mg/dl BUN 10 (6-23) mg/dl Creatinine 0.81 (0.6-1.4) mg/dl POC Creatinine 0.8 mg/dl Est Cr Clr Drug Dosing 186.8 ml/min Est GFR ( Amer) 149.3 ml/min Est GFR (Non-Af Amer) 128.8 ml/min BUN/Creatinine Ratio 12.3 (10-20) Glucose 132 H (70-99(Fasting)) mg/dl POC Glucose (other) 140 H (70-99) mg/dl Lactate 1.3 (0.4-2.0) mmol/L Calcium 9.3 (8.6-10.3) mg/dl POC Ioniz Calcium Edie 1.11 mmol/l Magnesium 1.8 (1.7-2.4) mg/dl Total Bilirubin 1.7 H (0.2-1.0) mg/dl Direct Bilirubin 0.5 H (0-0.2) mg/dl AST 14 (13-39) U/L ALT 21 (7-52) U/L Alkaline Phosphatase 73 (34-104) U/L Troponin I High Sens 6.7 (0-20) pg/ml Total Protein 7.5 (6.0-8.3) gm/dl Albumin 3.8 (3.4-5.0) gm/dl Procalcitonin 0.45 (0-0.5) ng/ml Urine Color Dark Yellow Urine Appearance Clear (Clear) Urine pH 6.0 (4.5-7.5) Ur Specific [place] 1.023 (1.000-1.030) Urine Protein 2+ H (Negative) Urine Glucose (UA) Negative (Negative) Urine Ketones 3+ H (Negative) Urine Blood 1+ H (Negative) Urine Nitrite Negative (Negative) Urine Bilirubin Negative (Negative) Urine Urobilinogen Negative (Negative) Ur Leukocyte Esterase Negative (Negative) Urine WBC (Auto) 5-10 H (0-5) /hpf Urine RBC (Auto) 0-4 (0-4) /hpf U Hyaline Cast (Auto) 1-5 (0-5) /lpf U Epithel Cells (Auto) 20-30 H (0-5) /lpf Urine Bacteria (Auto) Negative (Negative) SARS-CoV-2 (PCR) NEGATIVE (Negative) Influenza Type A (PCR) Negative (Neg) Influenza Type B (PCR) Negative (Neg) RSV (RT-PCR) Negative (Neg) 01/23/24 Range/Units 20:21 WBC (4.8-10.8) K/ul RBC (4.70-6.10) M/uL Hgb (14.0-18.0) g/dl POC Hgb (14.0-18.0) g/dl Hct (42.0-52.0) % POC Hct (42-52) % MCV (80.0-100.0) fL MCH (25.0-34.0) pg MCHC (32.0-36.0) g/dL RDW Std Deviation (36.4-46.3) fL RDW Coeff of Trevon (11.5-14.5) % Plt Count (130-400) K/uL MPV (9.4-12.4) fL Immature Gran % (Auto) % Neut % (Auto) % Lymph % (Auto) % [place] % (Auto) % Eos % (Auto) % Baso % (Auto) % Neut # (Auto) (1.40-6.50) K/uL Lymph # (Auto) (1.20-3.40) K/uL [place] # (Auto) (0.11-0.59) K/uL Eos # (Auto) (0.00-0.50) K/uL Baso # (Auto) (0.00-0.20) K/uL Immature Gran # (Auto) (0.01-0.20) K/uL PT (9.0-12.0) Seconds INR (0.9-1.1) APTT (21-31) Seconds PTT Ratio VBG pH 7.44 H (7.36-7.41) VBG pCO2 37 L (38-50) mmHg VBG pO2 33 mmHg VBG HCO3 25 mmol/L VBG O2 Saturation < 60.0 % VBG Base Excess 1.1 mEq/L POC Sodium (135-144) mmol/L Sodium (136-145) mmol/L POC Potassium (3.3-5.0) mmol/L Potassium (3.5-5.1) mmol/L POC Chloride (101-112) mmol/L Chloride (98-107) mmol/L Carbon Dioxide (21-32) mmol/L POC Total CO2 (24-31) mmol/L Anion Gap (3-11) POC Anion Gap (16-25) mmol/L POC BUN (7-18) mg/dl BUN (6-23) mg/dl Creatinine (0.6-1.4) mg/dl POC Creatinine mg/dl Est Cr Clr Drug Dosing ml/min Est GFR ( Amer) ml/min Est GFR (Non-Af Amer) ml/min BUN/Creatinine Ratio (10-20) Glucose (70-99(Fasting)) mg/dl POC Glucose (other) (70-99) mg/dl Lactate (0.4-2.0) mmol/L Calcium (8.6-10.3) mg/dl POC Ioniz Calcium Edie mmol/l Magnesium (1.7-2.4) mg/dl Total Bilirubin (0.2-1.0) mg/dl Direct Bilirubin (0-0.2) mg/dl AST (13-39) U/L ALT (7-52) U/L Alkaline Phosphatase (34-104) U/L Troponin I High Sens (0-20) pg/ml Total Protein (6.0-8.3) gm/dl Albumin (3.4-5.0) gm/dl Procalcitonin (0-0.5) ng/ml Urine Color Urine Appearance (Clear) Urine pH (4.5-7.5) Ur Specific [place] (1.000-1.030) Urine Protein (Negative) Urine Glucose (UA) (Negative) Urine Ketones (Negative) Urine Blood (Negative) Urine Nitrite (Negative) Urine Bilirubin (Negative) Urine Urobilinogen (Negative) Ur Leukocyte Esterase (Negative) Urine WBC (Auto) (0-5) /hpf Urine RBC (Auto) (0-4) /hpf U Hyaline Cast (Auto) (0-5) /lpf U Epithel Cells (Auto) (0-5) /lpf Urine Bacteria (Auto) (Negative) SARS-CoV-2 (PCR) (Negative) Influenza Type A (PCR) (Neg) Influenza Type B (PCR) (Neg) RSV (RT-PCR) (Neg) Imaging Data Radiologist's Impression: Abdomen/Pelvis CT 01/23/24 19:16 CR Exam(s): CT ABDOMEN + PELVIS With Contrast IV Amt: 89 ml optiray 320 EXAM: CT Abdomen and Pelvis With Intravenous Contrast CLINICAL HISTORY: Reason for exam: post operative fever abd pain. TECHNIQUE: Axial computed tomography images of the abdomen and pelvis with intravenous contrast. CTDI is 27.99 mGy and DLP is 1555.45 mGy-cm. Automated exposure control was utilized for the study. A dose lowering technique was utilized adhering to the principles of ALARA. CONTRAST: Patient received 89 ml optiray 320 of IV contrast COMPARISON: No relevant prior studies available. FINDINGS: There is linear subsegmental atelectasis of the right lung base. Liver, color, pancreas, spleen, adrenal glands, and kidneys are unremarkable. Aorta is normal in caliber. There are mildly enlarged mesenteric lymph nodes, notably in the ileocolic region. Patient has undergone interval appendectomy. There is a large rim- enhancing fluid collection extending from the appendectomy site into the lower pelvis and measuring roughly 12 cm TR x 9 cm AP x 24 cm CC. The pelvic portion of the collection encircles the rectosigmoid junction. There is no free pneumoperitoneum. Wall thickening in the rectosigmoid colon suggests proctocolitis. There is no bowel obstruction. Urinary bladder appears inflamed. Prostate is normal in size. Skeleton appears intact. IMPRESSION: 1. Large postoperative abscess extending from the appendectomy site to the lower pelvis and measuring roughly 12 x 9 x 24 cm. 2. Pelvic component of the abscess encircles the rectosigmoid colon, which appears inflamed, concerning for proctocolitis. 3. Urinary bladder appears inflamed, correlate with urinalysis for possible cystitis. Communications: Call Doctor Other Electronically signed by: Markus Workman M.D. 01/23/24 20:[address] [facility] Narrative 1913: The patient was evaluated in room C11. A complete history and physical exam was performed Cardiac monitoring: An order was placed for continuous cardiac monitoring. The monitor shows a rate of 130 with sinus tachycardia rhythm interpreted by ks Sepsis protocols initiated. Mason performed the patient be taken to CT scan. 1941: Spoke with general surgery Dr. Gutierrez who states to call her back with the CT results and she will evaluate the patient. 2009: Patient has a leukocytosis of 27.99. Lactic acid is within normal limits. Received a call from [facility] rad radiology Dr. Belcher. He stated that the patient had a 24 cm postoperative abscess going from the appendectomy site into the lower pelvis. Will contact general surgery and IR. Austin ordered for the patient. 2021: Spoke with Dr. Gutierrez who states she is parking and will be in to evaluate the patient. 2026: Received a [place] text message via secretary to board of commissioners from HELDER Wynne who stated he was unable to visualize the images at home and to speak with attending radiologist to discuss if this abscess can be drained here. 2034: Dr. Gutierrez at bedside evaluating patient. Spoke with Dr. Gamez radiology. We were able to connect Dr. Matt Gamez and I via telephone and Dr. Gamez reviewed the patient's images and stated that the patient could be kept here and they could drain the patient in the morning. Dr. Gutierrez was agreeable with this plan stated she would start the patient on IV antibiotics overnight. Dr. Gutierrez states she will put in orders for the patient and states to admit the patient to Dr. Voss service the patient's primary surgeon. 2039: Spoke with HELDER Wilson who states he spoke with radiology and they will plan on draining the patient in the morning. He asked that coagulation studies be sent on the patient and the patient be kept n.p.o. after midnight, Dr. Gutierrez was made aware. Impression & Plan Abscess, intra-abdominal, postoperative Discharge Plan Visit Data Chief Complaint: Abdominal Pain Stated Complaint: POST-OP APPENDECTOMY, PELVIC PAIN, DIARRHEA ED Provider: Kit Mc Discharge Problem: Abscess, intra-abdominal, postoperative Patient Disposition: Admitted As Inpatient Forms Stand Alone Forms: [facility] Prescriptions Prescriptions: No Action oxycodone-acetaminophen [Percocet] 5-325 mg tablet 1 - 2 tab PO .q4-6h PRN (Reason: pain, for initial therapy, max 6 tabs per day) Qty: 12 0RF amoxicillin-pot clavulanate 875-125 mg tablet 1 tab PO Q12H MDD 2 10 Days Qty: 20 0RF Referrals Referrals: [facility] [Primary Care Provider] -
[2024-01-23] MEDS: OPTIRAY 320 100ml IV ONE (19:40)
[2024-01-23 19:44] LABS: iSTAT Creatinine 0.8 mg/dl; iSTAT Hemoglobin 13.6 g/dl (14.0-18.0); iSTAT Ionized Calcium 1.11 mmol/l; iSTAT Potassium 3.7 mmol/L (3.3-5.0)
[2024-01-23 19:48] LABS: Appearance Urine Clear (Clear); Bacteria Urine Automated Negative (Negative); Bilirubin Urine Negative (Negative); Blood Urine 1+ (Negative); Color Urine Dark Yellow; Epithelial Cell Urine Auto 20-30 /lpf (0-5); Glucose Urine UA Negative (Negative); Ketones Urine 3+ (Negative); Leukocyte Esterase Urine Negative (Negative); Nitrite Urine Negative (Negative); Protein Urine 2+ (Negative); RBC Urine Automated 0-4 /hpf (0-4); Specific Gravity Urine 1.023 (1.000-1.030); Urobilinogen Urine Negative (Negative)
[2024-01-23 19:49] LABS: Hematocrit (blood only) 37.7 % (42.0-52.0); Hemoglobin 12.9 g/dl (14.0-18.0); Mean Corpuscular Hemoglobin 29.3 pg (25.0-34.0); Mean Corpuscular Hgb Conc 34.2 g/dL (32.0-36.0); Mean Corpuscular Volume 85.7 fL (80.0-100.0); Mean Platelet Volume 8.9 fL (9.4-12.4); Platelet Count 465 K/uL (130-400); RDW Coefficient of Variation 11.9 % (11.5-14.5); RDW Standard Deviation 37.5 fL (36.4-46.3); White Blood Count 27.99 K/ul (4.8-10.8)
[2024-01-23] MEDS: SODIUM CHLORIDE 0.9% 1,000 ML IV SCH (19:54)
--- NOTE | 2024-01-23 20:05 | CT Scan Report ---
Exam(s): CT ABDOMEN + PELVIS With Contrast IV Amt: 89 ml optiray 320 EXAM: CT Abdomen and Pelvis With Intravenous Contrast CLINICAL HISTORY: Reason for exam: post operative fever abd pain. TECHNIQUE: Axial computed tomography images of the abdomen and pelvis with intravenous contrast. CTDI is 27.99 mGy and DLP is 1555.45 mGy-cm. Automated exposure control was utilized for the study. A dose lowering technique was utilized adhering to the principles of ALARA. CONTRAST: Patient received 89 ml optiray 320 of IV contrast COMPARISON: No relevant prior studies available. FINDINGS: There is linear subsegmental atelectasis of the right lung base. Liver, color, pancreas, spleen, adrenal glands, and kidneys are unremarkable. Aorta is normal in caliber. There are mildly enlarged mesenteric lymph nodes, notably in the ileocolic region. Patient has undergone interval appendectomy. There is a large rim- enhancing fluid collection extending from the appendectomy site into the lower pelvis and measuring roughly 12 cm TR x 9 cm AP x 24 cm CC. The pelvic portion of the collection encircles the rectosigmoid junction. There is no free pneumoperitoneum. Wall thickening in the rectosigmoid colon suggests proctocolitis. There is no bowel obstruction. Urinary bladder appears inflamed. Prostate is normal in size. Skeleton appears intact. IMPRESSION: 1. Large postoperative abscess extending from the appendectomy site to the lower pelvis and measuring roughly 12 x 9 x 24 cm. 2. Pelvic component of the abscess encircles the rectosigmoid colon, which appears inflamed, concerning for proctocolitis. 3. Urinary bladder appears inflamed, correlate with urinalysis for possible cystitis. Communications: Call Doctor Other Electronically signed by: Markus Workman M.D. 01/23/24 20:04 PM
[2024-01-23 20:08] LABS: Albumin Level 3.8 gm/dl (3.4-5.0); BUN Creatinine Ratio 12.3 (10-20); Bilirubin Direct 0.5 mg/dl (0-0.2); Bilirubin,Total 1.7 mg/dl (0.2-1.0); Calcium 9.3 mg/dl (8.6-10.3); Creatinine Clr Calc Pharmacy 186.8 ml/min; Est GFR (African American) 149.3 ml/min; Est GFR (Non-African American) 128.8 ml/min; Magnesium 1.8 mg/dl (1.7-2.4); Potassium 3.7 mmol/L (3.5-5.1); Total Protein 7.5 gm/dl (6.0-8.3)
[2024-01-23 20:11] LABS: Basophils # (auto) 0.06 K/uL (0.00-0.20); Basophils % (auto) 0.2 %; Eosinophils # (auto) 0.01 K/uL (0.00-0.50); Immature Granulocytes # (auto) 0.26 K/uL (0.01-0.20); Immature Granulocytes % (auto) 0.9 %; Lymphocytes % (auto) 6.8 %; Monocytes # (auto) 2.13 K/uL (0.11-0.59); Monocytes % (auto) 7.6 %; Neutrophils # (auto) 23.63 K/uL (1.40-6.50); Neutrophils % (auto) 84.5 %
[2024-01-23 20:15] LABS: Troponin I High Sensitivity 6.7 pg/ml (0-20)
[2024-01-23] MEDS: PIPERACILLIN/TAZOBACTAM 4.5 GM/120 ML BAG IV ONE (20:21)
[2024-01-23 20:28] LABS: Base Excess VBG 1.1 mEq/L; HCO3 VBG 25 mmol/L; Oxygen Saturation VBG < 60.0 %; PCO2 VBG 37 mmHg (38-50); PO2 VBG 33 mmHg; pH VBG 7.44 (7.36-7.41)
[2024-01-23 20:38] LABS: INR 1.2 (0.9-1.1); Partial Thromboplastin Ratio 1.1; Partial Thromboplastin Time 32 Seconds (21-31); Prothrombin Time 12.5 Seconds (9.0-12.0)
[2024-01-23 20:40] LABS: Influenza A virus by PCR Negative (Neg); Influenza B virus by PCR Negative (Neg); RSV by PCR Negative (Neg); SARS CoV2 RNA(COVID-19) Ceph NEGATIVE (Negative)
[2024-01-23] MEDS ORDERED: MoRPHine SULFATE 2 MG/ML CARP IV PRN (20:45)
--- NOTE | 2024-01-23 20:45 | History & Physical Report ---
Date of Service January 23, 2024 Assessment & Plan (1) Abscess, intra-abdominal, postoperative: Plan: Large postop abscess appears amenable to perc drain. Discussed patient with interventional radiology who does feel as though perc drain can be done and will plan on doing it tomorrow. In interim, will start on IV antibiotics and IVF resuscitation. Plan IV pain meds, full liquid diet but npo after midnight. Discussed plan of care with patient's mother on the phone. All questions answered. Will admit. History of Present Illness Chief Complaint: abdominal pain and fever Primary Care Provider: [facility] 18 yr old man s/p lap appendectomy 8 days ago for perforated appendicitis who presents with 1-2 days of worsening right lower quadrant pain, fever to 38.5, tachycardia, overall not feeling well. Decreased appetite but no nausea or vomiting. Having loose bowel movements. Finding it difficult to urinate (cannot urinate while standing, only while sitting). Pain level is 7/10, worse with movement, better with pain medication. He was taking augmentin at home since surgery. Allergies Allergy/AdvReac Type Severity Reaction Status Date / Time pollen extracts Allergy Sneezing Verified 01/15/24 10:18 Home Medications Medication Instructions Recorded Confirmed Type oxycodone-acetaminophen 5 mg-325 1 - 2 tab PO .q4-6h PRN pain, for 01/15/24 Rx mg tablet (Percocet) initial therapy, max 6 tabs per day #12 tabs amoxicillin 875 mg-potassium 1 tab PO Q12H infection 10 days 01/16/24 Rx clavulanate 125 mg tablet #20 tabs Past Med/Surg History Medical History No pertinent family history No pertinent past medical history Surgical History History of laparoscopic appendectomy (01/15/24) Laparoscopic Appendectomy(Not Applicable) - Atif Voss, History of nasal surgery Social History Smoking Status: Never smoker Second Hand Exposure: No; Do You Dip or Chew Tobacco: No; Hx Alcohol Use: Yes Alcohol type: beer and hard liquor Hx Substance Use: No Preferred Language: Polish Communication Ability: Effective Ingot Stripper Required: No Beliefs That Will Affect Care: None Current Living Situation: Other Current Living Situation Comment: college dormitory Feels Safe at Home: Yes Assistive Devices: None Review of Systems Review of Systems: All systems reviewed & are unremarkable except as noted in HPI & below Physical Exam Constitutional: WD/WN, vitals as above tachycardic Eyes: PERRL, conjunctivae normal, anicteric sclerae Respiratory: normal respiratory effort, lungs clear to auscultation Cardiovascular: Rate/Rhythm: regular rhythm and + tachycardic Heart Sounds: no murmur Gastrointestinal (Abdomen): Inspection/Auscultation: abdomen normal to inspection, + abdomen distended (mild), normal bowel sounds and + abdominal surgical incision (clean) Percussion/Palpation: + abdomen tender (right mid to lower quadrant and pelvis) Musculoskeletal: no cyanosis or clubbing, extremities motor strength 5/5 Neurologic: no focal motor deficits Psychiatric: A+Ox3, euthymic affect Results & Data Results & Data Vital Signs (Past 12 Hours) Vital Signs Temp Pulse Pulse Resp BP BP Pulse Ox 01/23/24 20:30 120 H 21 136/96 99 01/23/24 20:11 117 H 01/23/24 20:00 117 H 15 144/83 H 98 01/23/24 19:57 117 H 18 143/87 H 97 01/23/24 19:07 38.5 C H 133 H 18 150/87 H 97 O2 Del Method 01/23/24 20:30 Room Air 01/23/24 20:11 01/23/24 20:00 Room Air 01/23/24 19:57 Room Air 01/23/24 19:07 Room Air Laboratory Results Abnormal lab results 01/23/24 01/23/24 01/23/24 Range/Units 19:20 19:32 20:21 WBC 27.99 H (4.8-10.8) K/ul RBC 4.40 L (4.70-6.10) M/uL Hgb 12.9 L (14.0-18.0) g/dl POC Hgb 13.6 L (14.0-18.0) g/dl Hct 37.7 L (42.0-52.0) % POC Hct 40 L (42-52) % Plt Count 465 H (130-400) K/uL MPV 8.9 L (9.4-12.4) fL Neut # (Auto) 23.63 H (1.40-6.50) K/uL [place] # (Auto) 2.13 H (0.11-0.59) K/uL Immature Gran # (Auto) 0.26 H (0.01-0.20) K/uL PT 12.5 H (9.0-12.0) Seconds INR 1.2 H (0.9-1.1) APTT 32 H (21-31) Seconds VBG pH 7.44 H (7.36-7.41) VBG pCO2 37 L (38-50) mmHg POC Sodium 132 L (135-144) mmol/L Sodium 131 L (136-145) mmol/L POC Chloride 96 L (101-112) mmol/L Chloride 96 L (98-107) mmol/L POC Total CO2 23 L (24-31) mmol/L Glucose 132 H (70-99(Fasting)) mg/dl POC Glucose (other) 140 H (70-99) mg/dl Total Bilirubin 1.7 H (0.2-1.0) mg/dl Direct Bilirubin 0.5 H (0-0.2) mg/dl Urine Protein 2+ H (Negative) Urine Ketones 3+ H (Negative) Urine Blood 1+ H (Negative) Urine WBC (Auto) 5-10 H (0-5) /hpf U Epithel Cells (Auto) 20-30 H (0-5) /lpf Diagnostic Findings CT scan personally reviewed and shows a large abscess occupying much of right lower quadrant and extending into pelvis.
[2024-01-23] MEDS: ONDANSETRON INJ 2 MG/ML 2 ML VIAL IV PRN (21:27)
[2024-01-23] MEDS: MoRPHine SULFATE 4 MG/ML 1 ML CARP\\VIAL IV PRN (21:27)
[2024-01-23 22:01] LABS: Hemoglobin 11.7 g/dl (14.0-18.0); Mean Corpuscular Hemoglobin 29.2 pg (25.0-34.0); Mean Corpuscular Hgb Conc 34.4 g/dL (32.0-36.0); Mean Corpuscular Volume 84.8 fL (80.0-100.0); Mean Platelet Volume 8.8 fL (9.4-12.4); Platelet Count 357 K/uL (130-400); RDW Standard Deviation 37.2 fL (36.4-46.3); Red Blood Count 4.01 M/uL (4.70-6.10); White Blood Count 23.65 K/ul (4.8-10.8)
[2024-01-23 22:21] LABS: Basophils # (auto) 0.05 K/uL (0.00-0.20); Basophils % (auto) 0.2 %; Dohle Bodies 1+; Eosinophils # (auto) 0.06 K/uL (0.00-0.50); Eosinophils % (auto) 0.3 %; Immature Granulocytes # (auto) 0.13 K/uL (0.01-0.20); Immature Granulocytes % (auto) 0.5 %; Lymphocytes # (auto) 1.31 K/uL (1.20-3.40); Lymphocytes % (auto) 5.5 %; Monocytes # (auto) 1.69 K/uL (0.11-0.59); Monocytes % (auto) 7.1 %; Neutrophils # (auto) 20.41 K/uL (1.40-6.50); Neutrophils % (auto) 86.4 %
[2024-01-23] MEDS: LACTATED RINGER'S 1,000 ML IV SCH (22:33)
[2024-01-23] MEDS: metroNIDAZOLE 500 MG/100 ML BAG IV SCH (23:11)
[2024-01-24] MEDS: PIPERACILLIN/TAZOBACTAM 4.5 GM in DEXTROSE 5% MINI-B 100 ML IV SCH (01:19)
--- NOTE | 2024-01-24 06:50 | XRay Report ---
XR chest 1V portable HISTORY: Sepsis COMPARISON: None. FINDINGS: No pneumothorax. There is mild elevation of the right hemidiaphragm. Right basilar linear d ensity favors subsegmental atelectasis. Otherwise, lungs are clear. The heart is normal in size. No a cute fractures. IMPRESSION: No acute process. ACT 112: Negative or not required by law. Electronically signed by: Rivera Dubose M.D. 01/24/2024 6:48 AM
[2024-01-24 07:28] LABS: Hematocrit (blood only) 34.3 % (42.0-52.0); Hemoglobin 11.7 g/dl (14.0-18.0); Mean Corpuscular Hemoglobin 29.3 pg (25.0-34.0); Mean Corpuscular Hgb Conc 34.1 g/dL (32.0-36.0); Mean Platelet Volume 9.1 fL (9.4-12.4); Platelet Count 366 K/uL (130-400); RDW Coefficient of Variation 12.2 % (11.5-14.5); RDW Standard Deviation 38.7 fL (36.4-46.3); Red Blood Count 3.99 M/uL (4.70-6.10); White Blood Count 30.65 K/ul (4.8-10.8)
[2024-01-24 07:43] LABS: BUN Creatinine Ratio 10.3 (10-20); Calcium 8.2 mg/dl (8.6-10.3); Creatinine Clr Calc Pharmacy 174.1 ml/min; Est GFR (Non-African American) 125.1 ml/min; Potassium 3.9 mmol/L (3.5-5.1)
[2024-01-24 07:53] LABS: Basophils # (auto) 0.06 K/uL (0.00-0.20); Basophils % (auto) 0.2 %; Eosinophils # (auto) 0.02 K/uL (0.00-0.50); Eosinophils % (auto) 0.1 %; Immature Granulocytes # (auto) 0.27 K/uL (0.01-0.20); Immature Granulocytes % (auto) 0.9 %; Lymphocytes # (auto) 1.49 K/uL (1.20-3.40); Lymphocytes % (auto) 4.9 %; Monocytes # (auto) 2.41 K/uL (0.11-0.59); Monocytes % (auto) 7.9 %; Toxic Vacuolation 1+
--- NOTE | 2024-01-24 08:20 | Surgery Progress Note ---
Date of Service January 24, 2024 Assessment & Plan (1) Abscess, intra-abdominal, postoperative: Plan: clinically stable. IV antibiotics symptom control IR planning drainage at 10:30 AM today (2) Abdominal pain: Admission and Anticipated Discharge Date Admission Date: January 23, 2024 Subjective pt seen. admission notes/ct scan reviewed. he looks remarkably well. c/o of some lower abdominal pain. states he did not have a fever at home. Physical Exam Physical Exam: alert. nad abd: soft. +lower ttp. Results & Data Vital Signs (Past 12 Hours) Vital Signs Temp Pulse Pulse Pulse Resp BP BP 01/24/24 08:14 38.4 C H 130 H 14 113/79 01/23/24 22:10 36.8 C 92 H 16 131/80 01/23/24 21:40 117 H 19 01/23/24 21:32 117 H 34 H 138/77 01/23/24 21:30 138/77 01/23/24 21:30 119 H 32 H 01/23/24 20:30 120 H 21 136/96 Pulse Ox O2 Del Method 01/24/24 08:14 96 Room Air 01/23/24 22:10 96 Room Air 01/23/24 21:40 95 Room Air 01/23/24 21:32 96 Room Air 01/23/24 21:30 01/23/24 21:30 97 Room Air 01/23/24 20:30 99 Room Air PG Care Time/CCT Total # of Minutes Spent Total Time Spent with Patient: Total time spent is greater than 50% in coordination of care (as documented) at patient's floor/unit and/or counseling patient: Coding Level of Care Code 49368 Post Operative Follow-Up Diagnoses Abscess, intra-abdominal, postoperative T81.43XA Abdominal pain R10.9 Abdominal location: unspecified location (2) Abdominal pain Abdominal location: unspecified location Qualified Code(s): R10.9 - Unspecified abdominal pain
[2024-01-24] MEDS: fentaNYL citrate PF 100 MCG/2 ML VIAL ONE (09:15)
[2024-01-24] MEDS: SODIUM CHLORIDE 0.9% 1,000 ML IV ONE (10:18)
[2024-01-24] MEDS: ACETAMINOPHEN 1,000 MG/100 ML VIAL IV PRN (12:00)
--- NOTE | 2024-01-24 12:18 | CT Scan Report ---
CT-guided pelvic abscess drain placement INDICATION: Large pelvic abscess status post appendectomy PROCEDURE: Procedure and risks were explained. Informed consent was obtained. A final timeout was com pleted. The patient was placed supine on the CT exam table. The right lower abdomen was prepped and d raped in sterile fashion. 1% buffered lidocaine was utilized for skin anesthesia. The patient receive d 50 mcg fentanyl IV. Utilizing CT guidance, an 18-gauge Chiba needle was advanced into the right lower quadrant pelvic abs cess. A 0.035 Amplatz wire was introduced and exchanged for a 10 Swedish locking pigtail catheter. A s mall amount of sanguinous fluid was sent to the lab for culture analysis. A total of 500 mL of sangui nous fluid was drained at the time of the procedure. The catheter was sutured to the skin with 2-0 si lk and placed to suction bag drainage. The patient tolerated the procedure well. Post CT imaging demo nstrated adequate catheter position with significant reduction in the pelvic abscess collection. Deneen l signs will be monitored postprocedure. IMPRESSION: Pelvic abscess drain placement as detailed above. Performed, dictated, and signed by Atif Mitchell PA-C; to be co-signed by Dr. Lalo Fernandez. Electronically signed by: Lalo Fernandez M.D. 01/24/2024 12:40 PM
--- NOTE | 2024-01-24 12:22 | Electrocardiogram Report ---
Test Reason : Blood Pressure : / mmHG Vent. Rate : 126 BPM Atrial Rate : 126 BPM P-R Int : 126 ms QRS Dur : 084 ms QT Int : 342 ms P-R-T Axes : 057 048 044 degrees QTc Int : 495 ms Sinus tachycardia Otherwise normal ECG No previous ECGs available Confirmed by Angel Luis Horowitz ([id number]) on 01/24/2024 12:21:55 PM Referred By: REFERRED SELF Confirmed By:Angel Luis Horowitz
[2024-01-24] MEDS: IBUPROFEN 600 MG TAB PO SCH (14:52)
--- NOTE | 2024-01-24 15:10 | Surgery Progress Note ---
Date of Service January 24, 2024 Assessment & Plan (1) Abscess, intra-abdominal, postoperative: Plan doing ok. continue IVF and IV antibiotics will check stool for c.diff suspect the tachycardia and fever secondary to mobilizing the infected abcess. reviewed CT with Dr. Fernandez. The majority of the hematoma was successfully evacuated. Admission and Anticipated Discharge Date Admission Date: January 23, 2024 Subjective pt seen. doing ok. "tired". pain improved since admission. still having loose bms Physical Exam Physical Exam: alert. appears fatigued. abd: soft. +tenderness/rebound. does not appear distended. drain with approx 600 cc's old blood. Results & Data Vital Signs (Past 12 Hours) Vital Signs Temp Pulse Resp BP Pulse Ox O2 Del Method 01/24/24 14:19 37.5 C 127 H 16 128/80 93 Room Air 01/24/24 12:30 39.4 C H 134 H 20 114/56 L 91 Room Air 01/24/24 11:28 38.5 C H 130 H 16 127/66 94 Room Air 01/24/24 11:00 38.1 C H 131 H 15 132/67 96 Room Air 01/24/24 10:53 38.3 C H 130 H 16 135/75 97 Room Air 01/24/24 10:37 39.0 C H 129 H 14 124/60 96 Room Air 01/24/24 10:14 38.4 C H 128 H 15 134/74 96 Room Air 01/24/24 10:00 39.6 C H 14 118/67 95 Room Air 01/24/24 08:14 38.4 C H 130 H 14 113/79 96 Room Air PG Care Time/CCT Total # of Minutes Spent Total Time Spent with Patient: Total time spent is greater than 50% in coordination of care (as documented) at patient's floor/unit and/or counseling patient: Coding Level of Care Code 59335 Post Operative Follow-Up Diagnoses Abscess, intra-abdominal, postoperative T81.43XA
[2024-01-24] MEDS: ACETAMINOPHEN 1,000 MG/100 ML VIAL IV SCH (22:17)
[2024-01-25 07:15] LABS: Hemoglobin 10.1 g/dl (14.0-18.0); Mean Corpuscular Hgb Conc 33.7 g/dL (32.0-36.0); Mean Corpuscular Volume 86.2 fL (80.0-100.0); Mean Platelet Volume 9.3 fL (9.4-12.4); Platelet Count 289 K/uL (130-400); RDW Coefficient of Variation 12.4 % (11.5-14.5); RDW Standard Deviation 39.8 fL (36.4-46.3); Red Blood Count 3.48 M/uL (4.70-6.10); White Blood Count 24.71 K/ul (4.8-10.8)
[2024-01-25 07:31] LABS: Anion Gap 7 (3-11); BUN Creatinine Ratio 14.5 (10-20); Blood Urea Nitrogen 10 mg/dl (6-23); Calcium 8.2 mg/dl (8.6-10.3); Carbon Dioxide 26 mmol/L (21-32); Chloride 104 mmol/L (98-107); Creatinine Clr Calc Pharmacy 219.5 ml/min; Est GFR (African American) > 150.0 ml/min; Est GFR (Non-African American) 137.6 ml/min; Glucose 105 mg/dl (70-99(Fasting)); Potassium 3.5 mmol/L (3.5-5.1); Sodium 137 mmol/L (136-145)
[2024-01-25 07:45] LABS: Basophils # (auto) 0.03 K/uL (0.00-0.20); Basophils % (auto) 0.1 %; Eosinophils # (auto) 0.02 K/uL (0.00-0.50); Eosinophils % (auto) 0.1 %; Immature Granulocytes # (auto) 0.33 K/uL (0.01-0.20); Immature Granulocytes % (auto) 1.3 %; Lymphocytes # (auto) 1.81 K/uL (1.20-3.40); Lymphocytes % (auto) 7.3 %; Monocytes # (auto) 1.23 K/uL (0.11-0.59); Neutrophils # (auto) 21.29 K/uL (1.40-6.50); Neutrophils % (auto) 86.2 %
--- NOTE | 2024-01-25 08:35 | Surgery Progress Note ---
Date of Service January 25, 2024 Assessment & Plan (1) Abscess, intra-abdominal, postoperative: Plan: wbc down. afebrile. c. diff neg will start questran TID will give IVF bolus cont IV antibiotics Dr. Reggie Buckley covering for weekend. Admission and Anticipated Discharge Date Admission Date: January 23, 2024 Subjective pt seen. "rough night" secondary to having to get up to loose bm's 3 times. very tired. denies pain. has not needed pain meds. Physical Exam Physical Exam: alert. nad. appears fatigued. drain still with old blood output. abd: diffuse lower abdominal ttp. unchanged from yesterday Results & Data Vital Signs (Past 12 Hours) Vital Signs Temp Pulse Resp BP Pulse Ox O2 Del Method 01/25/24 08:11 36.7 C 113 H 18 131/86 95 Room Air 01/25/24 03:55 37 C 115 H 18 125/80 95 Room Air 01/24/24 23:00 37.1 C 89 14 116/72 94 Room Air 01/24/24 22:20 Room Air PG Care Time/CCT Total # of Minutes Spent Total Time Spent with Patient: Total time spent is greater than 50% in coordination of care (as documented) at patient's floor/unit and/or counseling patient: Coding Level of Care Code 64621 Post Operative Follow-Up Diagnoses Abscess, intra-abdominal, postoperative T81.43XA
[2024-01-25] MEDS: SODIUM CHLORIDE 0.9% 1,000 ML IV ONE (09:50)
[2024-01-25] MEDS: CHOLESTYRAMINE LIGHT 4 GM PKT PO SCH ×2 (09:58→14:17)
[2024-01-25] MEDS ORDERED: CHOLESTYRAMINE LIGHT 4 GM PKT PO SCH (15:00)
--- NOTE | 2024-01-26 05:03 | Surgery Progress Note ---
Date of Service January 26, 2024 Assessment & Plan (1) Abscess, intra-abdominal, postoperative: Plan: Patient is status post appendectomy on 01/15/2024 (Appendix was noted to be perforated at time of surgery); patient required readmission on 01/23/2024 secondary to intra-abdominal abscess. Continue care as follows: Pathology from initial surgery showed findings consistent with acute appendicitis Interventional radiology has placed a percutaneous drain on 01/24/2024 Cultures from drain insertion have thus far shown gram-negative bacilli with further identification pending Continue analgesics Continue antiemetics Continue intravenous fluids for hydrationcurrently receiving lactated Ringer's at 150 cc/h Patient is currently receiving antibiotics in the form of Zosyn and Flagyl which should continue Check a.m. labs when available Would continue diet as toleratedwould go slow with food however as patient has some abdominal distention and is at risk for ileus Increase activity as able Patient is currently utilizing SCDs for DVT preventionwill continue this and initiate chemical means that once it is ascertained if patient will require any surgical intervention or not Admission and Anticipated Discharge Date Admission Date: January 23, 2024 Supervising Physician Co-Signing Physician Notes I have seen and examined this patient this am. I agree with the above assessment. His leukocytosis is continuing to decrease. Will continue to monitor with drain draining, on IV abx and IV fluids. Subjective Patient has been having on/off fevers since admission. He notes continued abdominal pain which is greatest in the right lower quadrant of his abdomen. He denies any nausea or vomiting. He reports he does not have much in the way of an appetite. He says he did have a bowel movement last night. Physical Exam Gastrointestinal (Abdomen): Abdomen has mild distention and bowel sounds are hypoactive. Patient has tenderness with palpation greatest in the right lower quadrant. Patient's surgical incision is clean, dry, and intact. Patient does have a drain in place which is drainingSanguinous material which is malodorous. Since insertion and has drained 575 cc. Results & Data Vital Signs (Past 12 Hours) Vital Signs Temp Pulse Resp BP BP Pulse Ox O2 Del Method 01/25/24 23:24 37.2 C 110 H 18 132/74 95 Room Air 01/25/24 19:25 38.0 C H 118 H 16 115/63 97 Room Air PG Care Time/CCT Total # of Minutes Spent Total Time Spent with Patient: Total time spent is greater than 50% in coordination of care (as documented) at patient's floor/unit and/or counseling patient: Coding Level of Care Code 55903 Post Operative Follow-Up Diagnoses Abscess, intra-abdominal, postoperative T81.43XA
[2024-01-26 07:16] LABS: Basophils # (auto) 0.03 K/uL (0.00-0.20); Basophils % (auto) 0.2 %; Eosinophils # (auto) 0.01 K/uL (0.00-0.50); Eosinophils % (auto) 0.1 %; Hematocrit (blood only) 28.1 % (42.0-52.0); Hemoglobin 9.4 g/dl (14.0-18.0); Immature Granulocytes # (auto) 0.25 K/uL (0.01-0.20); Immature Granulocytes % (auto) 1.4 %; Lymphocytes # (auto) 1.34 K/uL (1.20-3.40); Lymphocytes % (auto) 7.4 %; Mean Corpuscular Hemoglobin 28.8 pg (25.0-34.0); Mean Corpuscular Hgb Conc 33.5 g/dL (32.0-36.0); Mean Corpuscular Volume 86.2 fL (80.0-100.0); Mean Platelet Volume 9.2 fL (9.4-12.4); Monocytes # (auto) 0.75 K/uL (0.11-0.59); Monocytes % (auto) 4.1 %; Neutrophils # (auto) 15.81 K/uL (1.40-6.50); Neutrophils % (auto) 86.8 %; Platelet Count 306 K/uL (130-400); RDW Coefficient of Variation 12.6 % (11.5-14.5); RDW Standard Deviation 39.8 fL (36.4-46.3); Red Blood Count 3.26 M/uL (4.70-6.10); White Blood Count 18.19 K/ul (4.8-10.8)
[2024-01-26 07:53] LABS: Anion Gap 9 (3-11); BUN Creatinine Ratio 10.3 (10-20); Blood Urea Nitrogen 7 mg/dl (6-23); Calcium 7.7 mg/dl (8.6-10.3); Carbon Dioxide 23 mmol/L (21-32); Chloride 105 mmol/L (98-107); Creatinine Clr Calc Pharmacy 222.7 ml/min; Est GFR (African American) > 150.0 ml/min; Est GFR (Non-African American) 138.5 ml/min; Glucose 96 mg/dl (70-99(Fasting)); Potassium 3.1 mmol/L (3.5-5.1); Sodium 137 mmol/L (136-145)
[2024-01-26] MEDS: POTASSIUM CHLORIDE CRTAB 20 MEQ TABCR PO STA (13:01)
[2024-01-26] MEDS: IBUPROFEN 600 MG TAB PO PRN (16:42)
--- NOTE | 2024-01-27 05:19 | Surgery Progress Note ---
Date of Service January 27, 2024 Assessment & Plan (1) Abscess, intra-abdominal, postoperative: Plan: Patient is status post appendectomy on 01/15/2024 (Appendix was noted to be perforated at time of surgery); patient required readmission on 01/23/2024 secondary to intra-abdominal abscess. Continue care as follows: Pathology from initial surgery showed findings consistent with acute appendicitis Interventional radiology has placed a percutaneous drain on 01/24/2024will continue drain to bulb suction Cultures from drain insertion have grown pansensitive E. coli Continue analgesics Continue antiemetics Patient is currently receiving antibiotics in the form of Zosyn and Flagyl which should continue Check a.m. labs when availableof note Yesterday's labs showed the patient's leukocytosis has improved Would continue diet as toleratedif nausea and vomiting ensue may consider backing the patient's diet back Increase activity as able Patient is currently utilizing SCDs for DVT preventionwill continue this and initiate chemical means that once it is ascertained if patient will require any surgical intervention or not Admission and Anticipated Discharge Date Admission Date: January 23, 2024 Supervising Physician Co-Signing Physician Notes I have seen and examined this patient this am. I agree with the above assessment. His leukocytosis is continuing to decrease. His fevers seem to be defervescing. Last febrile at 4pm yesterday. Will continue to monitor with drain draining and IV abx I did speak to his mother yesterday and today. Went over possible next steps including CT if deemed necessary. Want to clarify regarding my discussion with her that provided the drain continues to drain and his clinical picture continues to improve, may not need a CT prior to discharge to home necessarily but may be something that may be considered down the line prior to drain removal. Continue with current management. F/U am labs. Please call on-call surgery with questions or concerns if they arise prior to Dr. Voss resuming in the am. Subjective Patient is currently resting comfortably in bed. He says yesterday he had a decent appetite and was able to consume solid food. He did report an episode of nausea and vomiting after eating but also felt that this was related to a potassium pill that was administered. He continues to report abdominal pain greatest in the right lower quadrant. His bowels are moving but he notes that they are loose. He notes that he has not ambulated much since readmission to the hospital. Physical Exam Gastrointestinal (Abdomen): Abdomen has mild distention noted. Bowel sounds are hypoactive. Patient has pain with palpation greatest in the right lower quadrant. There is a drain in p lace in the right lower quadrant that is draining what appears to be sanguinous/puslike material and has drained approximately 575 cc since placement Results & Data Vital Signs (Past 12 Hours) Vital Signs Temp Pulse Resp BP Pulse Ox O2 Del Method 01/26/24 21:44 36.9 C 107 H 18 135/83 95 Room Air 01/26/24 17:59 37 C PG Care Time/CCT Total # of Minutes Spent Total Time Spent with Patient: Total time spent is greater than 50% in coordination of care (as documented) at patient's floor/unit and/or counseling patient: Coding Level of Care Code 02049 Post Operative Follow-Up Diagnoses Abscess, intra-abdominal, postoperative T81.43XA
[2024-01-27 07:16] LABS: Basophils # (auto) 0.02 K/uL (0.00-0.20); Basophils % (auto) 0.1 %; Eosinophils # (auto) 0.08 K/uL (0.00-0.50); Eosinophils % (auto) 0.5 %; Hematocrit (blood only) 29.4 % (42.0-52.0); Hemoglobin 9.5 g/dl (14.0-18.0); Immature Granulocytes # (auto) 0.15 K/uL (0.01-0.20); Lymphocytes # (auto) 1.52 K/uL (1.20-3.40); Lymphocytes % (auto) 9.9 %; Mean Corpuscular Hemoglobin 28.7 pg (25.0-34.0); Mean Corpuscular Hgb Conc 32.3 g/dL (32.0-36.0); Mean Corpuscular Volume 88.8 fL (80.0-100.0); Mean Platelet Volume 9.1 fL (9.4-12.4); Monocytes % (auto) 5.9 %; Neutrophils # (auto) 12.62 K/uL (1.40-6.50); Neutrophils % (auto) 82.6 %; Platelet Count 344 K/uL (130-400); RDW Standard Deviation 42.3 fL (36.4-46.3); Red Blood Count 3.31 M/uL (4.70-6.10); White Blood Count 15.29 K/ul (4.8-10.8)
[2024-01-27 08:15] LABS: Anion Gap 7 (3-11); BUN Creatinine Ratio 10.9 (10-20); Blood Urea Nitrogen 6 mg/dl (6-23); Calcium 7.9 mg/dl (8.6-10.3); Carbon Dioxide 26 mmol/L (21-32); Chloride 106 mmol/L (98-107); Creatinine Clr Calc Pharmacy 275.3 ml/min; Est GFR (African American) > 150.0 ml/min; Est GFR (Non-African American) > 150.0 ml/min; Glucose 86 mg/dl (70-99(Fasting)); Potassium 3.2 mmol/L (3.5-5.1); Sodium 139 mmol/L (136-145)
--- NOTE | 2024-01-28 07:53 | Surgery Progress Note ---
Date of Service January 28, 2024 Assessment & Plan (1) Abscess, intra-abdominal, postoperative: Plan: doing well. seems ok for d/c. cx shows sensitivity to cipro...he does not do well with flagyl so will send home on cipro only. keep drain f/u with me on sunday for hopeful drain removal. Admission and Anticipated Discharge Date Admission Date: January 23, 2024 Subjective pt seen. doing ok physically. ladan diet. no pain. Physical Exam Physical Exam: alert. nad abd: soft. drain in place with old blood. mild expected RLQ ttp. Results & Data Vital Signs (Past 12 Hours) Vital Signs Temp Pulse Resp BP Pulse Ox O2 Del Method 01/28/24 07:14 37.5 C 105 H 16 145/85 H 95 Room Air 01/27/24 20:18 37.6 C H 109 H 18 141/79 H 95 Room Air PG Care Time/CCT Total # of Minutes Spent Total Time Spent with Patient: Total time spent is greater than 50% in coordination of care (as documented) at patient's floor/unit and/or counseling patient: Coding Level of Care Code 92707 Post Operative Follow-Up Diagnoses Abscess, intra-abdominal, postoperative T81.43XA
--- NOTE | 2024-01-31 20:36 | Discharge Summary ---
Date of Service January 28, 2024 Admission HPI Per Admitting Provider 18 yr old man s/p lap appendectomy 8 days ago for perforated appendicitis who presents with 1-2 days of worsening right lower quadrant pain, fever to 38.5, tachycardia, overall not feeling well. Decreased appetite but no nausea or vomiting. Having loose bowel movements. Finding it difficult to urinate (cannot urinate while standing, only while sitting). Pain level is 7/10, worse with movement, better with pain medication. He was taking augmentin at home since surgery. Principal Diagnosis post operative intra abdominal abscess h/o laparoscopic appendectomy Discharge Exam awake/alert, no distress Respiratory normal respiratory effort Gastrointestinal (Abdomen) Inspection/Auscultation: + abdominal surgical incision (c/d/i) and + abdominal surgical drain present (old bloody drainage in IR bag) Percussion/Palpation: + abdomen tender (some generalized discomfort to palpation in lower abdomen) and abdomen soft Discharge Data Allergies Allergy/AdvReac Type Severity Reaction Status Date / Time pollen extracts Allergy Sneezing Verified 01/15/24 10:18 Consultations 01/23/24 19:42 Consult General Surgery Stat 01/23/24 20:35 ED Decision to Admit Stat Ordered Studies 01/23/24 19:16 CT abd pelvis IV con only Stat 01/24/24 10:[address] periton/retro w/gdnce Routine Hospital Course (1) Abscess, intra-abdominal, postoperative: This is a 18yM who is s/p a laparoscopic appendectomy on 01/[address] Voss for a perforated appendicitis. After his discharge to home he eventually developed worsening pain in his abdomen in addition to fevers, diarrhea, and feelings like he could not void standing up. He eventually came into the ER on 01/22 for further evaluation on 01/22. A CT a/p was performed that revealed findings concerning for a post operative fluid collection, likely an abscess. WBC 27. The patient was kept NPO with IV and started on IV abx. Interventional Radiology was contacted who was able to place a drain in the fluid collection successfully. During patient's stay his loose stools was sent for cdiff which was negative, and he was started on some questran with improvement in the number of diarrheal movements he had. His diet was slowly advanced from liquids to low fiber. Pain and nausea were managed with prn medications. His WBC continued to downtrend. On 01/27 his pain was manageable, tolerating a diet, and drain draining what appeared to be infected hematoma. Cultures sensitive to cipro which he was sent home on. He was instructed to follow up in the office with Dr. Voss in a few days for check up and possible drain removal. He demonstrated understanding and was discharged to home without event. Total Time Total Time Spent Total Time Spent (In Minutes): 15 Discharge Plan Discharge Items Patient Disposition: Home - Self-Care Reason For Visit: ABDOMINAL ABSCESS Discharge Diagnosis: post op intra abdominal abscess Activity: Per Instructions section Lifting: No more than 10 pounds Bathing Comment: may shower; no soaking in tubs/pools x 2 weeks Exercise/Sports: Wait until after follow-up appointment Driving/Machine Use: no driving until cleared by surgeon Non-emergency contact: Surgeon Call non-emergency contact if: your symptoms worsen, your pain is worsening, you have a fever, your temperature is above 101.5, your wound has increased redness, your wound has increased drainage and your wound pain has increased Follow-up/Referrals: Atif Voss, DO [Surgeon] - 02/01/24 10:30 am (you have an appointment this upcoming sunday02/01/24 at 10:30am) [facility] [Primary Care Provider] - Diet: Low Fiber Addtl Attending Provider Instructions: Please care for your drain as instructed prior to discharge from the hospital. Keep accordion "pressed in" to maintain suction. Keep a daily log of the output and bring to the office Please continue the course of antibiotic prescribed to you You may purchase Tylenol and/or Ibuprofen over the counter if needed for ad ditional pain control over the next few days. Take per manufacturers instructions Pending Studies at Discharge: No Stand-Alone Forms: [employer] Work/School Release, Smoking Cessation Medications and DC Order Prescriptions: New ciprofloxacin HCl 500 mg tablet 500 mg PO Q12H 14 Days Qty: 28 0RF Continued oxycodone-acetaminophen [Percocet] 5-325 mg tablet 1 - 2 tab PO .q4-6h PRN (Reason: pain, for initial therapy, max 6 tabs per day) Qty: 12 0RF acetaminophen [Tylenol Extra Strength] 500 mg Tablet 1,000 mg PO Q6H PRN (Reason: Pain) Discontinued amoxicillin-pot clavulanate 875-125 mg tablet 1 tab PO Q12H MDD 2 10 Days Qty: 20 0RF Discharge Orders: Discharge Order (Routine); Ordered 01/28/24 Ordered By: Thelma Dao Admission Data Admit Date/Time: 01/23/24 20:45 Attending Provider: Atif Voss Admit Provider: Rachel Gutierrez Primary Care Provider: [facility] Other Providers: Rachel Gutierrez; Atif Voss Other Interventions: Discharge Summary Assessment (RN) Last Done: 01/28/24 08:25 Coding Level of Care Code 68527 IN/OBS DISCH 30 MIN/LESS Diagnoses Abscess, intra-abdominal, postoperative T81.43XA
== END 2024-01-28 09:43 | disposition home or self-care (01) | DRG 862 ==
LOC: ED 18:59 → 3W 20:45

== ENCOUNTER 2024-02-07 17:03 | Inpatient (IN) ==
--- NOTE | 2024-02-07 17:11 | ED Triage Note ---
Date of Service February 07, 2024 Provider in Triage Author: Danetet Perez History of Present Illness This patient was briefly evaluated while in triage. An abbreviated physical exam was performed. This patient is a 18-year-old Male who presents to the ED for evaluation of elevated temperature. Pt. was recently admitted for acute appendicitis with rupture and abscess. States he had the drain removed a week ago. Reports was told to monitor temperature. Today, developed fever of 101F, called general surgery, and was referred to the ED due to fever. Reports some soreness in the area of the drain site. No significant pain. 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 Physical Exam VITALS: Vitals are noted on the nurse's note and reviewed by myself. GENERAL: This is a 18 year old male, in no acute distress, nondiaphoretic, well- developed well-nourished. SKIN: No obvious rashes, edema, erythema HEAD: Normocephalic atraumatic. EYES: Conjunctivae without injection, sclerae without icterus. NECK: No JVD. LUNGS: No retractions or accessory muscle use. MUSCULOSKELETAL: Normal gait. NEURO: Patient was alert and oriented to person place and time. No focal neurological deficits. Initial orders for labs and / or imaging were placed and patient was placed in the waiting area until a bed is available. Please see further documentation for the full ED course.
[2024-02-07] MEDS: SODIUM CHLORIDE 0.9% 1,000 ML IV STA (17:23)
[2024-02-07 17:45] LABS: Basophils # (auto) 0.04 K/uL (0.00-0.20); Basophils % (auto) 0.2 %; Eosinophils # (auto) 0.03 K/uL (0.00-0.50); Eosinophils % (auto) 0.2 %; Hemoglobin 10.8 g/dl (14.0-18.0); Immature Granulocytes # (auto) 0.08 K/uL (0.01-0.20); Immature Granulocytes % (auto) 0.5 %; Lymphocytes # (auto) 1.95 K/uL (1.20-3.40); Lymphocytes % (auto) 11.3 %; Mean Corpuscular Hgb Conc 31.8 g/dL (32.0-36.0); Mean Corpuscular Volume 88.1 fL (80.0-100.0); Monocytes # (auto) 0.92 K/uL (0.11-0.59); Monocytes % (auto) 5.4 %; Neutrophils # (auto) 14.17 K/uL (1.40-6.50); Neutrophils % (auto) 82.4 %; Platelet Count 407 K/uL (130-400); RDW Coefficient of Variation 12.6 % (11.5-14.5); RDW Standard Deviation 40.4 fL (36.4-46.3); Red Blood Count 3.86 M/uL (4.70-6.10); White Blood Count 17.19 K/ul (4.8-10.8)
[2024-02-07] MEDS: OPTIRAY 320 100ml IV ONE (17:46)
[2024-02-07 17:47] LABS: iSTAT Blood Urea Nitrogen < 3 mg/dl (7-18); iSTAT Carbon Dioxide 28 mmol/L (24-31); iSTAT Chloride 94 mmol/L (101-112); iSTAT Creatinine 0.8 mg/dl; iSTAT Glucose 124 mg/dl (70-99); iSTAT Hematocrit 34 % (42-52); iSTAT Hemoglobin 11.6 g/dl (14.0-18.0); iSTAT Ionized Calcium 1.11 mmol/l; iSTAT Potassium 3.7 mmol/L (3.3-5.0); iSTAT Sodium 138 mmol/L (135-144)
[2024-02-07 18:04] LABS: Albumin Level 3.9 gm/dl (3.4-5.0); BUN Creatinine Ratio 11.9 (10-20); Bilirubin,Total 1.4 mg/dl (0.2-1.0); C Reactive Protein 17.25 mg/dl (0-0.5); Calcium 9.4 mg/dl (8.6-10.3); Creatinine Clr Calc Pharmacy 160.5 ml/min; Est GFR (African American) 147.1 ml/min; Est GFR (Non-African American) 126.9 ml/min; Globulin 3.9 gm/dl (2.5-4.0); Potassium 3.7 mmol/L (3.5-5.1); Total Protein 7.8 gm/dl (6.0-8.3)
[2024-02-07 18:09] LABS: Troponin I High Sensitivity 4.5 pg/ml (0-20)
[2024-02-07 18:16] LABS: INR 1.2 (0.9-1.1); Prothrombin Time 12.8 Seconds (9.0-12.0)
--- NOTE | 2024-02-07 18:34 | CT Scan Report ---
ABDOMEN AND PELVIS CT WITH IV CONTRAST CT DOSE: 1549.01 mGy.cm HISTORY: Follow-up study in a patient with appendectomy with postoperative abscess and prior drainage removal. fever, recent appendicitis with abscess/drain TECHNIQUE: Multiaxial CT images of the abdomen and pelvis were performed following the IV administrat ion of 93 cc of Optiray, A dose lowering technique was utilized adhering to the principles of ALARA. COMPARISON STUDY: 01/24/2024, 01/23/2024 FINDINGS: Clear lung bases. The spleen measures 14.57 m in length. Unremarkable pancreas, gallbladder , adrenal glands and liver. Patency of the hepatic and portal veins. Unremarkable kidneys. Urinary bl adder wall thickening with partial distention and perivascular stranding. Unremarkable aorta and IVC. Portal enlarged mesenteric and retroperitoneal lymph nodes. No bowel obstruction. Scattered small large bowel air-fluid levels. There is wall thickening of the r ectosigmoid, cecum and terminal ileum. Appendectomy. There is a persistent thick-walled multiloculate d abscess in the abdominal right lower quadrant extending into the pelvis interposed between the rect um and urinary bladder which on the coronal and sagittal images measures up to approximately 17 x 7 x 5 cm. Reactive mesenteric edema with trace free pelvic fluid. Evidence of prior drain removal. No ac bessy osseous abnormality. IMPRESSION: 1. Appendectomy with persistent pelvic abscess measuring up to 17 cm. This would likely be amenable t o percutaneous drainage. 2. Areas of reactive lymphadenopathy and bowel wall thickening as above. 3. Splenomegaly. 4. Suggesting cystitis. ACT 112: Negative or not required by law. The above report was generated using voice recognition software. It may contain grammatical, syntax o r spelling errors. Electronically signed by: Ian Morgan M.D. 02/07/2024 6:33 PM
[2024-02-07 18:36] LABS: Adenovirus PCR Not Detected (NotDetected); Bordetella parapertussis PCR Not Detected (NotDetected); Bordetella pertussis PCR Not Detected (NotDetected); Chlamydia pneumoniae PCR Not Detected (NotDetected); Coronavirus 229E PCR Not Detected (NotDetected); Coronavirus CoV-2 (COVID19)PCR Not Detected (NotDetected); Coronavirus HKU1 PCR Not Detected (NotDetected); Coronavirus NL63 PCR Not Detected (NotDetected); Coronavirus OC43PCR Not Detected (NotDetected); Human Metapneumovirus PCR Not Detected (NotDetected); Influenza A PCR Not Detected (NotDetected); Influenza B PCR Not Detected (NotDetected); Mycoplasma pneumoniae PCR Not Detected (NotDetected); Parainfluenza Virus 1 PCR Not Detected (NotDetected); Parainfluenza Virus 2 PCR Not Detected (NotDetected); Parainfluenza Virus 3 PCR Not Detected (NotDetected); Parainfluenza Virus 4 PCR Not Detected (NotDetected); Respiratory Syncytial VirusPCR Not Detected (NotDetected); Rhinovirus/Enterovirus PCR Not Detected (NotDetected)
[2024-02-07] MEDS: PIPERACILLIN/TAZOBACTAM 4.5 GM/120 ML BAG IV ONE (18:52)
[2024-02-07 19:11] LABS: Appearance Urine Clear (Clear); Bacteria Urine Automated None Seen (None Seen); Bilirubin Urine Negative (Negative); Blood Urine Negative (Negative); Cast Urine Automated 0-2 /lpf (0-2); Color Urine Dark Yellow; Epithelial Cell Urine Auto 0-2 /hpf (0-2); Glucose Urine UA Negative (Negative); Ketones Urine Negative (Negative); Leukocyte Esterase Urine Negative (Negative); Nitrite Urine Negative (Negative); Protein Urine 1+ (Negative); RBC Urine Automated 0-2 /hpf (0-2); Specific Gravity Urine > 1.045 (1.000-1.030); Urobilinogen Urine Negative (Negative); WBC Urine Automated 0-5 /hpf (0-5); pH Urine 5.5 (4.5-7.5)
--- NOTE | 2024-02-07 19:53 | History & Physical Report ---
Date of Service February 07, 2024 Assessment & Plan (1) Abscess, intra-abdominal, postoperative: Plan 18-year-old gentleman with recurrence of a pelvic abscess following a laparoscopic appendectomy for perforated appendicitis. He will be admitted to the hospital and placed on IV antibiotics. We will talk to interventional radiology to have percutaneous drain replaced in the abscess cavity tomorrow. N.p.o. after midnight tonight for procedure tomorrow. Will discuss with the primary team in the morning. He will likely need infectious disease consult for antibiotic guidance. Discussed the plan with the patient and his parents, and they are in agreement. All questions were answered. History of Present Illness Primary Care Provider: NO PCP 18-year-old gentleman 3 weeks status post laparoscopic appendectomy for perforated appendicitis. He was readmitted to the hospital a week later with a pelvic abscess. This underwent percutaneous drainage and he was placed on antibiotics. He was discharged home on January 28. He was seen on January 31 and the drain was removed. He continues on Cipro. He returns to the ER with right lower quadrant pain and a fever this afternoon. CT scan demonstrates reaccumulation of the pelvic abscess. His white count is 17. Allergies Allergy/AdvReac Type Severity Reaction Status Date / Time pollen extracts Allergy Sneezing Verified 02/07/24 19:07 Home Medications Medication Instructions Recorded Confirmed Type acetaminophen 500 mg tablet 1,000 mg PO Q6H PRN Pain 01/23/24 02/07/24 History (Tylenol Extra Strength) ciprofloxacin HCl 500 mg tablet 500 mg PO Q12H 02/07/24 02/07/24 History Past Med/Surg History Medical History No pertinent family history No pertinent past medical history Surgical History History of laparoscopic appendectomy (01/15/24) Laparoscopic Appendectomy(Not Applicable) - Atif Voss, History of nasal surgery Social History Smoking Status: Never smoker Second Hand Exposure: No; Do You Dip or Chew Tobacco: No; Hx Alcohol Use: No Hx Substance Use: No Preferred Language: Armenian Communication Ability: Effective Medication Reconciliation Technician Required: No Beliefs That Will Affect Care: None Current Living Situation: Other Current Living Situation Comment: Lives on campus at [facility]. Feels Safe at Home: Yes Assistive Devices: None Review of Systems Review of Systems: All systems reviewed & are unremarkable except as noted in HPI & below Physical Exam Constitutional: WD/WN, vitals as above Eyes: PERRL, conjunctivae normal, anicteric sclerae Neck: trachea midline, no thyromegaly Respiratory: normal respiratory effort; no respiratory distress and no labored breathing Cardiovascular: Rate/Rhythm: regular rhythm and + tachycardic Gastrointestinal (Abdomen): Inspection/Auscultation: abdomen normal to inspection; abdomen not distended Percussion/Palpation: + abdomen tender ( RLQ) and abdomen soft; no guarding and abdomen not rigid Skin: no rashes, warm and dry Psychiatric: A+Ox3, euthymic affect Results & Data Results & Data Vital Signs (Past 12 Hours) Vital Signs Temp Pulse Resp BP Pulse Ox O2 Del Method 02/07/24 19:20 112 H 29 H 97 02/07/24 19:10 108 H 21 97 02/07/24 19:00 108 H 22 97 02/07/24 18:50 112 H 21 97 02/07/24 18:44 103 H 02/07/24 18:40 106 H 16 97 02/07/24 18:34 106 H 21 97 02/07/24 17:08 37.4 C 124 H 16 145/88 H 97 Room Air Laboratory Results 02/07/24 02/07/24 02/07/24 Range/Units 18:39 17:31 17:17 WBC 17.19 H (4.8-10.8) K/ul RBC 3.86 L (4.70-6.10) M/uL Hgb 10.8 L (14.0-18.0) g/dl POC Hgb 11.6 L (14.0-18.0) g/dl Hct 34.0 L (42.0-52.0) % POC Hct 34 L (42-52) % MCV 88.1 (80.0-100.0) fL MCH 28.0 (25.0-34.0) pg MCHC 31.8 L (32.0-36.0) g/dL RDW Std Deviation 40.4 (36.4-46.3) fL RDW Coeff of Trevon 12.6 (11.5-14.5) % Plt Count 407 H (130-400) K/uL MPV 9.0 L (9.4-12.4) fL Immature Gran % (Auto) 0.5 % Neut % (Auto) 82.4 % Lymph % (Auto) 11.3 % [place] % (Auto) 5.4 % Eos % (Auto) 0.2 % Baso % (Auto) 0.2 % Neut # (Auto) 14.17 H (1.40-6.50) K/uL Lymph # (Auto) 1.95 (1.20-3.40) K/uL [place] # (Auto) 0.92 H (0.11-0.59) K/uL Eos # (Auto) 0.03 (0.00-0.50) K/uL Baso # (Auto) 0.04 (0.00-0.20) K/uL Immature Gran # (Auto) 0.08 (0.01-0.20) K/uL PT 12.8 H (9.0-12.0) Seconds INR 1.2 H (0.9-1.1) POC Sodium 138 (135-144) mmol/L Sodium 138 (136-145) mmol/L POC Potassium 3.7 (3.3-5.0) mmol/L Potassium 3.7 (3.5-5.1) mmol/L POC Chloride 94 L (101-112) mmol/L Chloride 102 (98-107) mmol/L Carbon Dioxide 25 (21-32) mmol/L POC Total CO2 28 (24-31) mmol/L Anion Gap 11 (3-11) POC Anion Gap 21.0 (16-25) mmol/L POC BUN < 3 L (7-18) mg/dl BUN 10 (6-23) mg/dl Creatinine 0.84 (0.6-1.4) mg/dl POC Creatinine 0.8 mg/dl Est Cr Clr Drug Dosing 160.5 ml/min Est GFR ( Amer) 147.1 ml/min Est GFR (Non-Af Amer) 126.9 ml/min BUN/Creatinine Ratio 11.9 (10-20) Glucose 122 H (70-99(Fasting)) mg/dl POC Glucose (other) 124 H (70-99) mg/dl Lactate 0.9 (0.4-2.0) mmol/L Calcium 9.4 (8.6-10.3) mg/dl POC Ioniz Calcium Edie 1.11 mmol/l Total Bilirubin 1.4 H (0.2-1.0) mg/dl AST 36 (13-39) U/L ALT 47 (7-52) U/L Alkaline Phosphatase 88 (34-104) U/L Troponin I High Sens 4.5 (0-20) pg/ml C-Reactive Protein 17.25 H (0-0.5) mg/dl Total Protein 7.8 (6.0-8.3) gm/dl Albumin 3.9 (3.4-5.0) gm/dl Globulin 3.9 (2.5-4.0) gm/dl Albumin/Globulin Ratio 1.0 (0.9-2) Lipase 32 (11-82) U/L Procalcitonin 0.16 (0-0.5) ng/ml Urine Color Dark Yellow Urine Appearance Clear (Clear) Urine pH 5.5 (4.5-7.5) Ur Specific [place] > 1.045 H (1.000-1.030) Urine Protein 1+ H (Negative) Urine Glucose (UA) Negative (Negative) Urine Ketones Negative (Negative) Urine Blood Negative (Negative) Urine Nitrite Negative (Negative) Urine Bilirubin Negative (Negative) Urine Urobilinogen Negative (Negative) Ur Leukocyte Esterase Negative (Negative) Urine WBC (Auto) 0-5 (0-5) /hpf Urine RBC (Auto) 0-2 (0-2) /hpf U Hyaline Cast (Auto) 0-2 (0-2) /lpf U Epithel Cells (Auto) 0-2 (0-2) /hpf Urine Bacteria (Auto) None Seen (None Seen) Adenovirus (PCR) Not Detected (NotDetected) B. pertussis DNA (PCR) Not Detected (NotDetected) B.parapertussis DNA PCR Not Detected (NotDetected) C. pneumoniae DNA (PCR) Not Detected (NotDetected) Coronavirus OC43 (PCR) Not Detected (NotDetected) Coronavirus HKU1 (PCR) Not Detected (NotDetected) Coronavirus 229E (PCR) Not Detected (NotDetected) SARS-CoV-2 (PCR) Not Detected (NotDetected) Coronavirus NL63 (PCR) Not Detected (NotDetected) Human Metapneumovir PCR Not Detected (NotDetected) Influenza Type A (PCR) Not Detected (NotDetected) Influenza Type B (PCR) Not Detected (NotDetected) M. pneumoniae (PCR) Not Detected (NotDetected) Parainfluenza 1 (PCR) Not Detected (NotDetected) Parainfluenza 2 (PCR) Not Detected (NotDetected) Parainfluenza 3 (PCR) Not Detected (NotDetected) Parainfluenza 4 (PCR) Not Detected (NotDetected) RSV (PCR) Not Detected (NotDetected) Entero/Rhino (PCR) Not Detected (NotDetected) Diagnostic Findings ABDOMEN AND PELVIS CT WITH IV CONTRAST CT DOSE: 1549.01 mGy.cm HISTORY: Follow-up study in a patient with appendectomy with postoperative abscess and prior drainage removal. fever, recent appendicitis with abscess/drain TECHNIQUE: Multiaxial CT images of the abdomen and pelvis were performed following the IV administration of 93 cc of Optiray, A dose lowering technique was utilized adhering to the principles of ALARA. COMPARISON STUDY: 01/24/2024, 01/23/2024 FINDINGS: Clear lung bases. The spleen measures 14.57 m in length. Unremarkable pancreas, gallbladder, adrenal glands and liver. Patency of the hepatic and portal veins. Unremarkable kidneys. Urinary bladder wall thickening with partial distention and perivascular stranding. Unremarkable aorta and IVC. Portal enlarged mesenteric and retroperitoneal lymph nodes. No bowel obstruction. Scattered small large bowel air-fluid levels. There is wall thickening of the rectosigmoid, cecum and terminal ileum. Appendectomy. There is a persistent thick-walled multiloculated abscess in the abdominal right lower quadrant extending into the pelvis interposed between the rectum and urinary bladder which on the coronal and sagittal images measures up to approximately 17 x 7 x 5 cm. Reactive mesenteric edema with trace free pelvic fluid. Evidence of prior drain removal. No acute osseous abnormality. IMPRESSION: 1. Appendectomy with persistent pelvic abscess measuring up to 17 cm. This would likely be amenable to percutaneous drainage. 2. Areas of reactive lymphadenopathy and bowel wall thickening as above. 3. Splenomegaly. 4. Suggesting cystitis. ACT 112: Negative or not required by law. Code Status & VTE Plan VTE Prophylaxis Plan VTE Prophylaxis will be ordered: Yes
[2024-02-07] MEDS ORDERED: diphenhydrAMINE Capsule 25 MG CAP PO PRN (21:51)
[2024-02-07] MEDS ORDERED: ONDANSETRON INJ 2 MG/ML 2 ML VIAL IV PRN (21:51)
[2024-02-07] MEDS ORDERED: PROMETHAZINE HCL 12.5 MG in SODIUM CHLORIDE 0.9% 50 ML IV PRN (21:51)
[2024-02-07] MEDS ORDERED: oxyCODONE/ACETAMINOPHEN 5mg/325mg TAB PO PRN ×2 (21:51)
[2024-02-07] MEDS: ENOXAPARIN INJ 40 MG/0.4 ML SYR SQ SCH (23:30)
--- NOTE | 2024-02-08 00:27 | Emergency Department Note ---
History of Present Illness General Chief complaint: Fever Stated complaint: FEVER AFTER SURGERY Time Seen by Provider: 02/07/24 18:12 History of Present Illness Provider complaint: Fever Onset (ago): day(s) 1 18-year-old male with history of a postoperative abscess status post an appendectomy for ruptured appendicitis presents emergency department for fever. Patient states that he had a fever today of 101.3 Tmax. He reports his surgeon instructed him to come into the emergency department evaluated, Dr. Voss. He states he has minimal pain at the site of his surgery and his pain has been significantly improved since his previous ER visit. Patient states that he has not had any nausea or vomiting. No difficulty urinating.. No cough. Patient reports that he had his drain pulled that was placed by IR for postoperative abscess 6 days ago. Home Medications Medication Instructions Recorded Confirmed Type acetaminophen 500 mg tablet 1,000 mg PO Q6H PRN Pain 01/23/24 02/07/24 History (Tylenol Extra Strength) ciprofloxacin HCl 500 mg tablet 500 mg PO Q12H 02/07/24 02/07/24 History Allergies Allergy/AdvReac Type Severity Reaction Status Date / Time pollen extracts Allergy Sneezing Verified 02/07/24 19:07 Past Med/Surg History Medical History No pertinent family history No pertinent past medical history Surgical History History of laparoscopic appendectomy (01/15/24) Laparoscopic Appendectomy(Not Applicable) - Atif Voss, DO History of nasal surgery Social History Smoking Status: Never smoker Second Hand Exposure: No; Do You Dip or Chew Tobacco: No; Tobacco Cessation Education Requested by Patient: No Hx Alcohol Use: No Hx Substance Use: No Preferred Language: Latvian Communication Ability: Effective Pediatrician Required: No Beliefs That Will Affect Care: None Current Living Situation: Other Current Living Situation Comment: Lives On [place] At [facility]. Other Information That Helps Us Care for You: No Feels Safe at Home: Yes Safety Concerns: Feels Safe At This Time Assistive Devices: None Physical Exam Vital Signs Vital Signs - 24 hr 02/07/24 17:08 02/07/24 18:34 02/07/24 18:40 Temperature 37.4 C Temperature Source Oral Pulse Rate 124 H 106 H 106 H Pulse Rate from SpO2 Sensor 106 H 105 H Respiratory Rate 16 21 16 Respiratory Effort / Characteristics Non-Labored Spontaneous Respiratory Depth Normal Blood Pressure 145/88 H Blood Pressure Mean 107 Pulse Oximetry 97 97 97 Oxygen Delivery Method Room Air Sepsis Recent Fever Within 48 Hours Yes Sepsis New/Unexplained Change in Mental Status No Sepsis Action Taken by Nursing No Action Required 02/07/24 18:44 Temperature Temperature Source Pulse Rate 103 H Pulse Rate from SpO2 Sensor Respiratory Rate Respiratory Effort / Characteristics Respiratory Depth Blood Pressure Blood Pressure Mean Pulse Oximetry Oxygen Delivery Method Sepsis Recent Fever Within 48 Hours Sepsis New/Unexplained Change in Mental Status Sepsis Action Taken by Nursing Physical Exam GENERAL: oriented to person, place, and time. appears well-developed and well- nourished. HENT: Exam performed. - Head: Normocephalic and atraumatic. EYES: Conjunctivae and EOM are normal. Right eye exhibits no discharge. Left eye exhibits no discharge. No scleral icterus. NECK: Normal range of motion. Neck supple. No JVD present. CV: Tachycardic rate, regular rhythm, normal heart sounds and intact distal pulses. There is no peripheral edema. Palpable radial pulses bue. PULM/CHEST: Effort normal and breath sounds normal. No respiratory distress. No stridor. no wheezes. no rales. ABD: The abdomen is soft. There is mild tenderness on palpation of the right lower quadrant. No guarding or rigidity. No rebound tenderness. NEURO: Motor and sensation grossly intact. SKIN: Skin is warm and dry. He is not diaphoretic. PSYCH: normal mood and affect. Behavior is normal. Judgment and thought content normal. Course Course 1811: The patient was evaluated in room B9. A complete history and physical exam was performed Cardiac monitoring: An order was placed for continuous cardiac monitoring. The monitor shows a rate of 120 with sinus tachycarida rhythm interpreted by me 184: Discussed the patient's imaging findings with Dr. Lockhart radiology via [place] text. He states that the patient has persistent pelvic abscess measuring up to 17 cm. He states that he believes Yury Mitchell is in house tomorrow and will be able to place a IR drain tomorrow. Discussed the case with general surgery on-call Dr. Vivas who states he will be down to evaluate the patient and admit him. Zosyn ordered for the patient. White blood cell count 17.19. Administered Medications Discontinued Medications Sodium Chloride (Nss) 1,000 mls @ 999 mls/hr IV .Q1H1M STA Stop: 02/07/24 18:12 Last Infusion: 02/07/24 18:52 Dose: Infused Documented By: Admin: 02/07/24 17:23 Dose: 999 mls/hr Documented By: MMN Piperacillin Sod/Tazobactam Sod (Zosyn) 4.5 gm in 120 mls @ 240 mls/hr IV NOW ONE Stop: 02/07/24 19:12 Last Infusion: 02/07/24 20:25 Dose: Infused Documented By: Admin: 02/07/24 18:52 Dose: 240 mls/hr Documented By: ACC Ioversol (Optiray 320 100ml) 93 ml IV ONCE ONE Stop: 02/07/24 17:47 Last Admin: 02/07/24 17:46 Dose: 93 ml Documented By: ARELIS Medical Decision Making Medical Records Attestation: I reviewed the patient's medical records. External medical records reviewed. Patient was seen in the emergency department January 15, 2024 and admitted for an appendicitis. Patient was operated on that today and according to the operative report from Dr. Voss when he peeled back to the omentum there was a perforation of the tip of the appendix but there was no stool spillage and there was a fair amount of purulent fluid in the right lower quadrant as well as pelvis. It was irrigated and suctioned out. Patient subsequently represented to the emergency department on January 23, 2024 and was diagnosed with a large postoperative abscess. Patient was admitted and had a drain placed by IR. Laboratory Data Attestation: I reviewed the patient's lab results. 02/07/24 17:17 02/07/24 17:17 Lab Results 02/07/24 02/07/24 02/07/24 Range/Units 17:17 17:31 18:39 WBC 17.19 H (4.8-10.8) K/ul RBC 3.86 L (4.70-6.10) M/uL Hgb 10.8 L (14.0-18.0) g/dl POC Hgb 11.6 L (14.0-18.0) g/dl Hct 34.0 L (42.0-52.0) % POC Hct 34 L (42-52) % MCV 88.1 (80.0-100.0) fL MCH 28.0 (25.0-34.0) pg MCHC 31.8 L (32.0-36.0) g/dL RDW Std Deviation 40.4 (36.4-46.3) fL RDW Coeff of Trevon 12.6 (11.5-14.5) % Plt Count 407 H (130-400) K/uL MPV 9.0 L (9.4-12.4) fL Immature Gran % (Auto) 0.5 % Neut % (Auto) 82.4 % Lymph % (Auto) 11.3 % [place] % (Auto) 5.4 % Eos % (Auto) 0.2 % Baso % (Auto) 0.2 % Neut # (Auto) 14.17 H (1.40-6.50) K/uL Lymph # (Auto) 1.95 (1.20-3.40) K/uL [place] # (Auto) 0.92 H (0.11-0.59) K/uL Eos # (Auto) 0.03 (0.00-0.50) K/uL Baso # (Auto) 0.04 (0.00-0.20) K/uL Immature Gran # (Auto) 0.08 (0.01-0.20) K/uL PT 12.8 H (9.0-12.0) Seconds INR 1.2 H (0.9-1.1) POC Sodium 138 (135-144) mmol/L Sodium 138 (136-145) mmol/L POC Potassium 3.7 (3.3-5.0) mmol/L Potassium 3.7 (3.5-5.1) mmol/L POC Chloride 94 L (101-112) mmol/L Chloride 102 (98-107) mmol/L Carbon Dioxide 25 (21-32) mmol/L POC Total CO2 28 (24-31) mmol/L Anion Gap 11 (3-11) POC Anion Gap 21.0 (16-25) mmol/L POC BUN < 3 L (7-18) mg/dl BUN 10 (6-23) mg/dl Creatinine 0.84 (0.6-1.4) mg/dl POC Creatinine 0.8 mg/dl Est Cr Clr Drug Dosing 160.5 ml/min Est GFR ( Amer) 147.1 ml/min Est GFR (Non-Af Amer) 126.9 ml/min BUN/Creatinine Ratio 11.9 (10-20) Glucose 122 H (70-99(Fasting)) mg/dl POC Glucose (other) 124 H (70-99) mg/dl Lactate 0.9 (0.4-2.0) mmol/L Calcium 9.4 (8.6-10.3) mg/dl POC Ioniz Calcium Edie 1.11 mmol/l Total Bilirubin 1.4 H (0.2-1.0) mg/dl AST 36 (13-39) U/L ALT 47 (7-52) U/L Alkaline Phosphatase 88 (34-104) U/L Troponin I High Sens 4.5 (0-20) pg/ml C-Reactive Protein 17.25 H (0-0.5) mg/dl Total Protein 7.8 (6.0-8.3) gm/dl Albumin 3.9 (3.4-5.0) gm/dl Globulin 3.9 (2.5-4.0) gm/dl Albumin/Globulin Ratio 1.0 (0.9-2) Lipase 32 (11-82) U/L Procalcitonin 0.16 (0-0.5) ng/ml Urine Color Dark Yellow Urine Appearance Clear (Clear) Urine pH 5.5 (4.5-7.5) Ur Specific [place] > 1.045 H (1.000-1.030) Urine Protein 1+ H (Negative) Urine Glucose (UA) Negative (Negative) Urine Ketones Negative (Negative) Urine Blood Negative (Negative) Urine Nitrite Negative (Negative) Urine Bilirubin Negative (Negative) Urine Urobilinogen Negative (Negative) Ur Leukocyte Esterase Negative (Negative) Urine WBC (Auto) 0-5 (0-5) /hpf Urine RBC (Auto) 0-2 (0-2) /hpf U Hyaline Cast (Auto) 0-2 (0-2) /lpf U Epithel Cells (Auto) 0-2 (0-2) /hpf Urine Bacteria (Auto) None Seen (None Seen) Adenovirus (PCR) Not Detected (NotDetected) B. pertussis DNA (PCR) Not Detected (NotDetected) B.parapertussis DNA PCR Not Detected (NotDetected) C. pneumoniae DNA (PCR) Not Detected (NotDetected) Coronavirus OC43 (PCR) Not Detected (NotDetected) Coronavirus HKU1 (PCR) Not Detected (NotDetected) Coronavirus 229E (PCR) Not Detected (NotDetected) SARS-CoV-2 (PCR) Not Detected (NotDetected) Coronavirus NL63 (PCR) Not Detected (NotDetected) Human Metapneumovir PCR Not Detected (NotDetected) Influenza Type A (PCR) Not Detected (NotDetected) Influenza Type B (PCR) Not Detected (NotDetected) M. pneumoniae (PCR) Not Detected (NotDetected) Parainfluenza 1 (PCR) Not Detected (NotDetected) Parainfluenza 2 (PCR) Not Detected (NotDetected) Parainfluenza 3 (PCR) Not Detected (NotDetected) Parainfluenza 4 (PCR) Not Detected (NotDetected) RSV (PCR) Not Detected (NotDetected) Entero/Rhino (PCR) Not Detected (NotDetected) Imaging Data Attestation: I personally reviewed and interpreted this imaging study as follows: My Impression: CT abdomen pelvis: Persistent right lower quadrant abscess Radiologist's Impression: Abdomen/Pelvis CT 02/07/24 17:[address] WITH IV CONTRAST CT DOSE: 1549.01 mGy.cm HISTORY: Follow-up study in a patient with appendectomy with postoperative abscess and prior drainage removal. fever, recent appendicitis with abscess/drain TECHNIQUE: Multiaxial CT images of the abdomen and pelvis were performed following the IV administration of 93 cc of Optiray, A dose lowering technique was utilized adhering to the principles of ALARA. COMPARISON STUDY: 01/24/2024, 01/23/2024 FINDINGS: Clear lung bases. The spleen measures 14.57 m in length. Unremarkable pancreas, gallbladder, adrenal glands and liver. Patency of the hepatic and portal veins. Unremarkable kidneys. Urinary bladder wall thickening with partial distention and perivascular stranding. Unremarkable aorta and IVC. Portal enlarged mesenteric and retroperitoneal lymph nodes. No bowel obstruction. Scattered small large bowel air-fluid levels. There is wall thickening of the rectosigmoid, cecum and terminal ileum. Appendectomy. There is a persistent thick-walled multiloculated abscess in the abdominal right lower quadrant extending into the pelvis interposed between the rectum and urinary bladder which on the coronal and sagittal images measures up to approximately 17 x 7 x 5 cm. Reactive mesenteric edema with trace free pelvic fluid. Evidence of prior drain removal. No acute osseous abnormality. IMPRESSION: 1. Appendectomy with persistent pelvic abscess measuring up to 17 cm. This would likely be amenable to percutaneous drainage. 2. Areas of reactive lymphadenopathy and bowel wall thickening as above. 3. Splenomegaly. 4. Suggesting cystitis. ACT 112: Negative or not required by law. The above report was generated using voice recognition software. It may contain grammatical, syntax or spelling errors. Electronically signed by: Ian Morgan M.D. 02/07/2024 6:33 PM [facility] Narrative 1812: The patient was evaluated in room B9. A complete history and physical exam was performed Cardiac monitoring: An order was placed for continuous cardiac monitoring. The monitor shows a rate of 120 with sinus tachycarida rhythm interpreted by me 1842: White blood cell count 17.19. Discussed the patient's imaging findings with Dr. Lockhart radiology via [place] text. He states that the patient has persistent pelvic abscess measuring up to 17 cm. He states that he believes Yury Mitchell is in house tomorrow and will be able to place a IR drain tomorrow. Discussed the case with general surgery on-call Dr. Vivas who states he will be down to evaluate the patient and admit him. Jaimen ordered for the patient. Impression & Plan Abscess, intra-abdominal, postoperative Discharge Plan Visit Data Chief Complaint: Fever Stated Complaint: FEVER AFTER SURGERY ED Provider: Kit Mc Discharge Problem: Abscess, intra-abdominal, postoperative Patient Disposition: Admitted As Inpatient Discharge Instructions Interventions: ED Discharge Assessment Last Done: 02/07/24 21:10
[2024-02-08] MEDS: PIPERACILLIN/TAZOBACTAM 4.5 GM in DEXTROSE 5% MINI-B 100 ML IV SCH (00:32)
--- NOTE | 2024-02-08 08:33 | Surgery Consultation ---
Date of Consultation February 08, 2024 Assessment & Plan (1) Abscess, intra-abdominal, postoperative: Unfortunately he has a large recurrent abscess. There is no evidence of free air. We spoke with radiology who is going to put another drain in. We have asked him to put a larger drain if possible. He will need to be on IV antibiotics. We will also consult infectious disease to get their opinion. History of Present Illness Attending Physician: Atif Voss DO History of Present Illness Kevin is a patient of mine who is status post appendectomy for perforated appendicitis several weeks ago. His postoperative course was complicated by an abdominal abscess which was drained by interventional radiology. He did well following that. His drain had no output for about 3 days and was removed 1 week ago. He was feeling well and really had no complaints. He noted a fever yesterday and called the office. We referred him to the emergency room where workup revealed a recurrent abdominal abscess. He really is feeling well and denies much in the way of pain or malaise. Allergies Allergy/AdvReac Type Severity Reaction Status Date / Time pollen extracts Allergy Sneezing Verified 02/07/24 19:07 Home Medications Medication Instructions Recorded Confirmed Type acetaminophen 500 mg tablet 1,000 mg PO Q6H PRN Pain 01/23/24 02/07/24 History (Tylenol Extra Strength) ciprofloxacin HCl 500 mg tablet 500 mg PO Q12H 02/07/24 02/07/24 History Patient History Medical History No pertinent family history No pertinent past medical history Surgical History History of laparoscopic appendectomy (01/15/24) Laparoscopic Appendectomy(Not Applicable) - Atif Voss DO History of nasal surgery Social History Smoking Status: Never smoker Second Hand Exposure: No; Do You Dip or Chew Tobacco: No; Tobacco Cessation Education Requested by Patient: No Hx Alcohol Use: No Hx Substance Use: No Preferred Language: Mongolian Communication Ability: Effective Frit Mixer And Burner Required: No Beliefs That Will Affect Care: None Current Living Situation: Other Current Living Situation Comment: Lives On [place] At [facility]. Other Information That Helps Us Care for You: No Feels Safe at Home: Yes Safety Concerns: Feels Safe At This Time Assistive Devices: None Physical Exam Physical Exam: Alert no acute distress Abdomen is soft. His incisions look good. He does have right-sided tenderness. Results & Data Vital Signs (Past 12 Hours) Vital Signs Temp Pulse Pulse Resp BP Pulse Ox Pulse Ox 02/08/24 07:45 37.6 C H 113 H 28 H 120/68 96 02/07/24 23:24 98 02/07/24 22:33 37.9 C H 110 H 18 146/84 H 97 02/07/24 21:30 02/07/24 21:30 37.9 C H 110 H 18 146/84 H 97 02/07/24 21:30 97 O2 Del Method O2 Del Method 02/08/24 07:45 Room Air 02/07/24 23:24 Room Air 02/07/24 22:33 Room Air 02/07/24 21:30 Room Air 02/07/24 21:30 Room Air 02/07/24 21:30 Room Air PG Care Time/CCT Total # of Minutes Spent Total Time Spent with Patient: Total time spent is greater than 50% in coordination of care (as documented) at patient's floor/unit and/or counseling patient: Coding Level of Care Code None Diagnoses Abscess, intra-abdominal, postoperative T81.43XA
--- NOTE | 2024-02-08 11:21 | Infectious Disease Consult ---
Date of Consultation February 08, 2024 Assessment & Plan (1) Abscess, intra-abdominal, postoperative: (2) Leukocytosis: (3) Abdominal pain: (4) History of appendicitis: Plan 18yo M with h/o recent admission 01/14-01/16 with acute appendicitis s/p laparoscopic appendectomy on 01/14 with intraoperative findings of perforated appendix, dcd on augmentin 10d, readmission 01/22-01/27 with large RLQ abscess extending into pelvis s/p IR drain on 01/23 (output appeared to be c/w hematoma, cx with waggoner-S E coli and B fragilis) and discharged on ciprofloxacin x 14d with eot 02/10 (note no ID involvement during these admission), drain removed outpatient on 01/31, who now presented on 02/06 with RLQ pain and fever to 101.3. Here he has been afebrile, tachycardic, BP stable. Initial labs with WBC 17.19, Cr 0.84, AST/ALT wnl. CRP 17.25, PCT 0.16. UA negative. RPP negative. CTAP with appendectomy with persistent thick-walled multiloculated abscess in the abdominal right lower quadrant extending into the pelvis measuring up to 17 cm; reactive LAD and bowel wall thickening, splenomegaly, cystitis. He has been getting zosyn. Planned for IR drain today. ID consulted 02/07 for assistance. Recurrence of abscess, possibly d/t inadequate drainage (would be unclear since no reimaging until this admission) along with that cx had also grown Bacteroides which would not be adequately covered by the ciprofloxacin. Agree with keeping him on zosyn for now while awaiting further data. Agree with IR drain. Will adjust abx based on culture results. ABx Zosyn 02/06-present Micro: 01/23 Abscess cx: E coli (waggoner-S) and B fragilis 02/06 BCX: pending # Persistent multiloculated 17cm abscess in RLQ/pelvis # Recent perforated appendicitis s/p lap appendectomy c/b abscess cx with waggoner- sensitive E coli and Bacteroides fragilis - agree with IR drain: please send aerobic and anaerobic cultures - f/u blood cx - continue on zosyn 4.5g IV q8h pending cx results - final abx regimen/duration pending above ID will continue to follow. If questions or concerns, contact Infectious Disease Call Center . Dr. Dillon to take over service on Sunday. Chata Diaz MD [facility], Division of Infectious Diseases [facility]: [phone] Consultation Information Consultation was provided via telemedicine using two-way real-time interactive telecommunication between the patient and the telemedicine provider. For the duration of the visit, the provider was performing the assessment from a different facility than the patient. This includesuse of bluetooth stethoscope forauscultationperformed by the telepresenter that the telemedicine provider can hear if described in the physical exam. Baccarat Manager contact information: Please call [facility] Call Center [phone]. (Phone Number For Physician Use Only) After establishing a telemedicine visit, patient was: Patient was verified with two unique identifiers, Patient/authorized rep acknowledged consent and understanding and Gave permission to continue telehealth session Time Spent with Patient: Initial => 75 min History of Present Illness Reason for Consultation: h/o perforated appendicitis, pelvic collection Attending Physician: Atif Voss DO History of Present Illness 18yo M with h/o perforated appendicitis c/b abscess who presented on 02/06 with RLQ and fever. He was admitted 01/15/24 to 01/16 with acute appendicitis s/p laparoscopic appendectomy on 01/14. Intraoperatively noted to have a perforation at the tip of the appendix. He was discharged on 10 days of augmentin. He returned on 01/22-01/27 with worsening RLQ pain and fevers, found to have a large RLQ abscess extending to pelvis. S/p IR drain on 01/23, drainage of what appeared to be an infected hematoma. Cx with waggoner-sensitive E coli and Bacteroides. He was sent home on ciprofloxacin x 14 days. Note no ID involvement during this time. He was seen outpatient and drain was removed on 01/31 after no drainage noted for 2 days. Now returns with recurrence of fever and pain. Here he has been afebrile, tachycardic, BP stable. Initial labs with WBC 17.19, Cr 0.84, AST/ALT wnl. CRP 17.25, PCT 0.16. UA negative. RPP negative. CTAP with appendectomy with persistent thick-walled multiloculated abscess in the abdominal right lower quadrant extending into the pelvis measuring up to 17 cm; reactive LAD and bowel wall thickening, splenomegaly, cystitis. He has been getting zosyn. Planned for IR drain today. ID consulted 02/07 for assistance. On evaluation, patient reports that he had been monitoring his temperatures. 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 He notes having aching in his abdomen and had a temp yesterday to 101.3. He has not had any active drainage from the prior drain site. No vomiting or diarrhea. He has been compliant with his outpatient ciprofloxacin, which was scheduled to end on 02/10. No rashes, SOB, chest pain. Allergies Allergy/AdvReac Type Severity Reaction Status Date / Time pollen extracts Allergy Sneezing Verified 02/07/24 19:07 Home Medications Medication Instructions Recorded Confirmed Type acetaminophen 500 mg tablet 1,000 mg PO Q6H PRN Pain 01/23/24 02/07/24 History (Tylenol Extra Strength) ciprofloxacin HCl 500 mg tablet 500 mg PO Q12H 02/07/24 02/07/24 History Patient History Medical History No pertinent family history No pertinent past medical history Surgical History History of laparoscopic appendectomy (01/15/24) Laparoscopic Appendectomy(Not Applicable) - Atif Voss, History of nasal surgery Social History Smoking Status: Never smoker Second Hand Exposure: No; Do You Dip or Chew Tobacco: No; Tobacco Cessation Education Requested by Patient: No Hx Alcohol Use: No Hx Substance Use: No Preferred Language: Estonian Communication Ability: Effective Coal Hiker Required: No Beliefs That Will Affect Care: None Current Living Situation: Other Current Living Situation Comment: Lives On [place] At [facility]. Other Information That Helps Us Care for You: No Feels Safe at Home: Yes Safety Concerns: Feels Safe At This Time Assistive Devices: None Review of System 10-point review of systems reviewed and are negative except for as above. Physical Exam Physical Exam: General: Awake, alert, no acute distress HEENT: NC/AT, EOMI, mmm Neck: supple Lungs: respirations non-labored Heart: nl peripheral perfusion Abdomen: soft, surgical sites clean with scabs, mild right TTP Ext: no LE edema Skin: no rash Neuro: 5/5 strength throughout, O x 3 Results & Data Vital Signs (Past 12 Hours) Vital Signs Temp Pulse Pulse Resp BP Pulse Ox Pulse Ox 02/08/24 11:11 37.5 C 108 H 18 98 02/08/24 07:45 37.6 C H 113 H 28 H 120/68 96 02/07/24 23:24 98 O2 Del Method O2 Del Method 02/08/24 11:11 Room Air 02/08/24 07:45 Room Air 02/07/24 23:24 Room Air Laboratory Results Labs reviewed Diagnostic Findings Imaging reviewed (2) Leukocytosis Leukocytosis type: unspecified Qualified Code(s): D72.829 - Elevated white blood cell count, unspecified (3) Abdominal pain Abdominal location: unspecified location Qualified Code(s): R10.9 - Unspecified abdominal pain
[2024-02-08] MEDS: fentaNYL citrate PF 100 MCG/2 ML VIAL ONE (12:45)
--- NOTE | 2024-02-08 13:19 | CT Scan Report ---
CT-guided pelvic abscess drain placement INDICATION: Large pelvic abscess PROCEDURE: Procedure and risks were explained. Informed consent was obtained. A final timeout was com pleted. The patient was placed supine on the CT exam table. The right lower abdomen was prepped and d raped in sterile fashion. 1% buffered lidocaine was utilized for skin anesthesia. The patient receive d 50 mcg fentanyl IV. Utilizing CT guidance, an 18-gauge Chiba needle was advanced into the right lower quadrant pelvic abs cess. A 0.035 Amplatz wire was introduced and exchanged for a 10 Swedish locking pigtail catheter. A s mall amount of purulent fluid was sent to the lab for culture analysis. The catheter was sutured to t he skin with 2-0 silk and placed to suction bag drainage. The patient tolerated the procedure well. P ost CT imaging demonstrated adequate catheter position with reduction in the pelvic abscess collectio n. Vital signs will be monitored postprocedure. IMPRESSION: Pelvic abscess drain placement as detailed above. Performed, dictated, and signed by Atif Mitchell PA-C; to be co-signed by Dr. Ian Morgan. Electronically signed by: Ian Morgan M.D. 02/08/2024 2:28 PM
[2024-02-08] MEDS: MoRPHine SULFATE 2 MG/ML CARP IV PRN (13:44)
[2024-02-08] MEDS: KETOROLAC 30 MG/ML VIAL IV PRN (20:01)
--- NOTE | 2024-02-09 05:42 | Surgery Progress Note ---
Date of Service February 09, 2024 Assessment & Plan (1) Abscess, intra-abdominal, postoperative: Plan: Patient is status post appendectomy (perforated) on 01/15/2024; percutaneous drain placed on 01/24/2024 secondary to intra-abdominal abscess (this has been removed); new percutaneous drain placed on 02/08/2024 secondary to intra- abdominal abscess recurrence Continue analgesics as needed Continue antiemetics as needed Continue antibiotics in the form of Zosyn; Cultures from current drainage procedure are pending but Gram stain has shown gram-negative bacilli, gram- positive cocci, and gram-positive bacilli Continue current diet which is full liquids Increase activity as able Check a.m. labs when available Lovenox is in place for DVT prevention Admission and Anticipated Discharge Date Admission Date: February 07, 2024 Supervising Physician Co-Signing Physician Notes pnt S&E, labs reviewed, agree w/ above. Post op appy w/ recurrent abscess, IR drainage yesterday, feels better, no fevers. abd soft, nt, drain w/ brown purulent fluid. wbc 5 from 17. cont drain, iv abx, diet as tolerated. Here through weekend Subjective Patient is resting comfortably in bed. At the present time he denies any fevers, shakes, or chills. He does note pain in his abdomen in the right lower quadrant. He is tolerating full liquids without any nausea or vomiting. Patient notes that his bowels are moving. Physical Exam Gastrointestinal (Abdomen): Abdomen has slight distention with positive bowel sounds. Surgical incisions are clean, dry, intact. There is pain noted with palpation in the right lower quadrant. Percutaneous drain is in placeit has drained 300 cc since insertion. Results & Data Vital Signs (Past 12 Hours) Vital Signs Temp Pulse Resp BP Pulse Ox O2 Del Method 02/08/24 21:44 37.1 C 99 H 18 125/79 95 Room Air 02/08/24 20:05 Room Air PG Care Time/CCT Total # of Minutes Spent Total Time Spent with Patient: Total time spent is greater than 50% in coordination of care (as documented) at patient's floor/unit and/or counseling patient: Coding Level of Care Code 56426 Post Operative Follow-Up Diagnoses Abscess, intra-abdominal, postoperative T81.43XA
[2024-02-09 07:19] LABS: Basophils # (auto) 0.03 K/uL (0.00-0.20); Basophils % (auto) 0.5 %; Eosinophils # (auto) 0.11 K/uL (0.00-0.50); Eosinophils % (auto) 1.8 %; Hematocrit (blood only) 31.1 % (42.0-52.0); Hemoglobin 10.1 g/dl (14.0-18.0); Immature Granulocytes # (auto) 0.02 K/uL (0.01-0.20); Immature Granulocytes % (auto) 0.3 %; Lymphocytes # (auto) 1.23 K/uL (1.20-3.40); Lymphocytes % (auto) 20.7 %; Mean Corpuscular Hemoglobin 28.2 pg (25.0-34.0); Mean Corpuscular Hgb Conc 32.5 g/dL (32.0-36.0); Mean Corpuscular Volume 86.9 fL (80.0-100.0); Mean Platelet Volume 9.2 fL (9.4-12.4); Monocytes # (auto) 0.51 K/uL (0.11-0.59); Monocytes % (auto) 8.6 %; Neutrophils # (auto) 4.05 K/uL (1.40-6.50); Neutrophils % (auto) 68.1 %; Platelet Count 346 K/uL (130-400); RDW Coefficient of Variation 12.8 % (11.5-14.5); RDW Standard Deviation 40.8 fL (36.4-46.3); Red Blood Count 3.58 M/uL (4.70-6.10); White Blood Count 5.95 K/ul (4.8-10.8)
[2024-02-09 07:40] LABS: Anion Gap 8 (3-11); BUN Creatinine Ratio 10.3 (10-20); Blood Urea Nitrogen 8 mg/dl (6-23); Calcium 9.5 mg/dl (8.6-10.3); Carbon Dioxide 27 mmol/L (21-32); Chloride 105 mmol/L (98-107); Creatinine Clr Calc Pharmacy 178.5 ml/min; Est GFR (African American) > 150.0 ml/min; Est GFR (Non-African American) 130.9 ml/min; Glucose 88 mg/dl (70-99(Fasting)); Potassium 4.3 mmol/L (3.5-5.1); Sodium 140 mmol/L (136-145)
[2024-02-09] MEDS: ACETAMINOPHEN 1,000 MG/100 ML VIAL IV PRN (20:04)
--- NOTE | 2024-02-10 05:49 | Surgery Progress Note ---
Date of Service February 10, 2024 Assessment & Plan (1) Abscess, intra-abdominal, postoperative: Plan: Patient is status post appendectomy (perforated) on 01/15/2024; percutaneous drain placed on 01/24/2024 secondary to intra-abdominal abscess (this has been removed); new percutaneous drain placed on 02/08/2024 secondary to intra- abdominal abscess recurrence Continue to provide analgesics as needed Continue antiemetics as needed Continue antibiotics in the form of Zosyn -Cultures from current drainage procedure are pending but Gram stain has shown gram-negative bacilli, gram-positive cocci, and gram-positive bacilli -Blood cultures drawn this admission on 02/07/2024 are negative for growth to date Of note cultures from previous percutaneous drain on 01/16/2024 grew Bacteroides along with pansensitive E. coli -White blood cell count was 17 at time of admission and was noted to be normal on yesterday's labs Patient has not had any febrile episodes since 02/08/2024 at approximate 11:30 AM Continue current diet (now on solids) Discussed with patient the importance of ambulation Check a.m. labs when available Lovenox is in place for DVT prevention Admission and Anticipated Discharge Date Admission Date: February 07, 2024 Supervising Physician Co-Signing Physician Notes pnt S&E, labs reviewed, agree w/ above. Post op appy w/ recurrent abscess, IR drainage, cx pending, feels better, no fevers. abd soft, nt, drain w/ brown purulent fluid. wbc 4. cont drain, iv abx, diet as tolerated. Here through weekend Subjective Patient is currently sleeping comfortably in bed. He was easily aroused. He does report some pain in the right lower quadrant of his abdomen but notes that this is somewhat less severe than what was noted at time of admission. He denies any nausea or vomiting and is tolerating solid food. He denies any fevers, shakes, or chills. He denies shortness of breath. He notes that his bowels have moved since admission. He notes he was out of bed in a chair yesterday but has not ambulated much since admission. Physical Exam Gastrointestinal (Abdomen): Abdomen has minimal distention and is nonrigid. Bowel sounds are present. All surgical incisions are clean, dry, and intact. Patient is abdominal tenderness greatest in the right lower quadrant. Percutaneous drain is in place and has a recorded output of 300 cc since placement. This morning the drain output does not appear as dark in color as what was noted yesterday. Results & Data Vital Signs (Past 12 Hours) Vital Signs Temp Pulse Resp BP Pulse Ox O2 Del Method 02/09/24 22:01 37.0 C 90 18 113/73 96 Room Air PG Care Time/CCT Total # of Minutes Spent Total Time Spent with Patient: Total time spent is greater than 50% in coordination of care (as documented) at patient's floor/unit and/or counseling patient: Coding Level of Care Code 80945 Post Operative Follow-Up Diagnoses Abscess, intra-abdominal, postoperative T81.43XA
[2024-02-10 06:44] LABS: Basophils # (auto) 0.05 K/uL (0.00-0.20); Basophils % (auto) 1.1 %; Eosinophils # (auto) 0.13 K/uL (0.00-0.50); Eosinophils % (auto) 2.8 %; Hematocrit (blood only) 35.3 % (42.0-52.0); Hemoglobin 11.1 g/dl (14.0-18.0); Immature Granulocytes # (auto) 0.03 K/uL (0.01-0.20); Immature Granulocytes % (auto) 0.6 %; Lymphocytes # (auto) 1.59 K/uL (1.20-3.40); Lymphocytes % (auto) 34.4 %; Mean Corpuscular Hemoglobin 27.8 pg (25.0-34.0); Mean Corpuscular Hgb Conc 31.4 g/dL (32.0-36.0); Mean Corpuscular Volume 88.3 fL (80.0-100.0); Mean Platelet Volume 8.8 fL (9.4-12.4); Monocytes # (auto) 0.39 K/uL (0.11-0.59); Monocytes % (auto) 8.4 %; Neutrophils # (auto) 2.43 K/uL (1.40-6.50); Neutrophils % (auto) 52.7 %; Platelet Count 366 K/uL (130-400); RDW Coefficient of Variation 12.5 % (11.5-14.5); RDW Standard Deviation 40.5 fL (36.4-46.3); White Blood Count 4.62 K/ul (4.8-10.8)
[2024-02-10 07:08] LABS: Anion Gap 7 (3-11); BUN Creatinine Ratio 9.2 (10-20); Blood Urea Nitrogen 7 mg/dl (6-23); Calcium 9.6 mg/dl (8.6-10.3); Carbon Dioxide 29 mmol/L (21-32); Chloride 104 mmol/L (98-107); Creatinine Clr Calc Pharmacy 183.2 ml/min; Est GFR (African American) > 150.0 ml/min; Est GFR (Non-African American) 132.3 ml/min; Glucose 91 mg/dl (70-99(Fasting)); Potassium 3.8 mmol/L (3.5-5.1); Sodium 140 mmol/L (136-145)
--- NOTE | 2024-02-11 07:56 | Surgery Progress Note ---
Date of Service February 11, 2024 Assessment & Plan (1) Abscess, intra-abdominal, postoperative: Plan: Patient is status post appendectomy (perforated) on 01/15/2024 percutaneous drain placed on 01/24/2024 secondary to intra-abdominal abscess (this has been removed); new percutaneous drain placed on 02/08/2024 secondary to intra-abdominal abscess recurrence Pt tolerating reg diet , having BMs + flatus VSS afebrile Denies abd pain IR drain RLQ sm amt of pink purulent fluid noted in tubing/compression chamber 25cc /24hr. Encouraged ambulation Continue IV Zosyn per ID recommendations Blood cultures showing NGTD Am labs not drawn yet WBC yesterday 4.6 will follow as above. looks /feels well. has been afebrile for over 48 hours. culture data reviewed. will repeat ct scan to eval fluid collection. will d/w ID regarding d/c antibiotics . d/c planning. d/w pt and his mother this morning. Admission and Anticipated Discharge Date Admission Date: February 07, 2024 Subjective Pt resting in bed Denies abd pain at present time Tolerating reg diet having BMs Review of Systems Constitutional: no fever and no chills Eyes: + corrective lenses Respiratory: no dyspnea Cardiovascular: no chest pain Gastrointestinal: no abdominal pain, no nausea and no vomiting Musculoskeletal: no muscle weakness Psychiatric: no confusion Physical Exam Physical Exam: alert oriented pleasant Constitutional: cooperative and comfortable; no acute distress Respiratory: normal respiratory effort and able to speak in complete sentences; no respiratory distress Cardiovascular: Rate/Rhythm: regular rate (75) Gastrointestinal (Abdomen): Inspection/Auscultation: + abdominal surgical scar (CDI residual dermabond surrounding port sites ) and + abdominal surgical drain present (IR drain sm amt of pink purulent fluid noted in tubing/compression chamber); abdomen not distended Percussion/Palpation: abdomen soft Musculoskeletal: no cyanosis or clubbing, extremities motor strength 5/5 Psychiatric: A+Ox3, euthymic affect Results & Data Vital Signs (Past 12 Hours) Vital Signs Temp Pulse Resp BP Pulse Ox O2 Del Method 02/11/24 07:41 97.9 F 75 16 113/75 98 Room Air 02/10/24 21:58 98.1 F 85 18 117/76 98 Room Air 02/10/24 20:10 Room Air Results CMP Results: Na 140 mmol/L (136-145) 02/10/24 K 3.8 mmol/L (3.5-5.1) 02/10/24 Cl 104 mmol/L (98-107) 02/10/24 CO2 29 mmol/L (21-32) 02/10/24 Anion Gap 7 (3-11) 02/10/24 BUN 7 mg/dl (6-23) 02/10/24 Creatinine 0.76 mg/dl (0.6-1.4) 02/10/24 Estimated GFR ( Amer) > 150.0 ml/min 02/10/24 Estimated GFR (Non-Af Amer) 132.3 ml/min 02/10/24 BUN/Creatinine Ratio 9.2 (10-20) L 02/10/24 Glu 91 mg/dl (70-99(Fasting)) 02/10/24 Ca 9.6 mg/dl (8.6-10.3) 02/10/24 Total Bilirubin 1.4 mg/dl (0.2-1.0) H 02/07/24 Direct Bilirubin 0.5 mg/dl (0-0.2) H 01/23/24 AST 36 U/L (13-39) 02/07/24 ALT 47 U/L (7-52) 02/07/24 Alkaline Phosphatase 88 U/L (34-104) 02/07/24 TP 7.8 gm/dl (6.0-8.3) 02/07/24 Albumin 3.9 gm/dl (3.4-5.0) 02/07/24 Globulin 3.9 gm/dl (2.5-4.0) 02/07/24 Albumin/Globulin Ratio 1.0 (0.9-2) 02/07/24 Results Complete Blood Count Results: RBC 4.00 M/uL (4.70-6.10) L 02/10/24 WBC 4.62 K/ul (4.8-10.8) L 02/10/24 Hgb 11.1 g/dl (14.0-18.0) L 02/10/24 Hct 35.3 % (42.0-52.0) L 02/10/24 Plt Count 366 K/uL (130-400) 02/10/24 PG Care Time/CCT Total # of Minutes Spent Total Time Spent with Patient: Total time spent is greater than 50% in coordination of care (as documented) at patient's floor/unit and/or counseling patient: Coding Level of Care Code 08770 Post Operative Follow-Up Diagnoses Abscess, intra-abdominal, postoperative T81.43XA
[2024-02-11 09:01] LABS: Basophils # (auto) 0.02 K/uL (0.00-0.20); Basophils % (auto) 0.4 %; Eosinophils # (auto) 0.16 K/uL (0.00-0.50); Eosinophils % (auto) 3.2 %; Hematocrit (blood only) 35.6 % (42.0-52.0); Hemoglobin 11.5 g/dl (14.0-18.0); Immature Granulocytes # (auto) 0.03 K/uL (0.01-0.20); Immature Granulocytes % (auto) 0.6 %; Lymphocytes # (auto) 1.51 K/uL (1.20-3.40); Lymphocytes % (auto) 29.8 %; Mean Corpuscular Hemoglobin 27.9 pg (25.0-34.0); Mean Corpuscular Hgb Conc 32.3 g/dL (32.0-36.0); Mean Corpuscular Volume 86.4 fL (80.0-100.0); Monocytes # (auto) 0.37 K/uL (0.11-0.59); Monocytes % (auto) 7.3 %; Neutrophils # (auto) 2.98 K/uL (1.40-6.50); Neutrophils % (auto) 58.7 %; Platelet Count 414 K/uL (130-400); RDW Coefficient of Variation 12.8 % (11.5-14.5); Red Blood Count 4.12 M/uL (4.70-6.10); White Blood Count 5.07 K/ul (4.8-10.8)
[2024-02-11 09:16] LABS: Anion Gap 8 (3-11); BUN Creatinine Ratio 9.3 (10-20); Blood Urea Nitrogen 7 mg/dl (6-23); Calcium 9.8 mg/dl (8.6-10.3); Carbon Dioxide 29 mmol/L (21-32); Chloride 105 mmol/L (98-107); Creatinine Clr Calc Pharmacy 185.7 ml/min; Est GFR (African American) > 150.0 ml/min; Glucose 89 mg/dl (70-99(Fasting)); Sodium 142 mmol/L (136-145)
[2024-02-11] MEDS: OPTIRAY 320 500ml IV ONE (09:30)
--- NOTE | 2024-02-11 10:45 | Infectious Disease Progress Nt ---
Date of Service February 11, 2024 Assessment & Plan (1) Abscess, intra-abdominal, postoperative: (2) Leukocytosis: (3) Abdominal pain: (4) History of appendicitis: Plan 18yo M with h/o recent admission 01/14-01/16 with acute appendicitis s/p laparoscopic appendectomy on 01/14 with intraoperative findings of perforated appendix, dcd on augmentin 10d, readmission 01/22-01/27 with large RLQ abscess extending into pelvis s/p IR drain on 01/23 (output appeared to be c/w hematoma, cx with waggoner-S E coli and B fragilis) and discharged on ciprofloxacin x 14d with eot 02/10 (note no ID involvement during these admission), drain removed outpatient on 01/31, who now presented on 02/06 with RLQ pain and fever to 101.3. Here he has been afebrile, tachycardic, BP stable. Initial labs with WBC 17.19, Cr 0.84, AST/ALT wnl. CRP 17.25, PCT 0.16. UA negative. RPP negative. CTAP with appendectomy with persistent thick-walled multiloculated abscess in the abdominal right lower quadrant extending into the pelvis measuring up to 17 cm; reactive LAD and bowel wall thickening, splenomegaly, cystitis. He has been getting zosyn. Planned for IR drain today. ID consulted 02/07 for assistance. Recurrence of abscess, possibly d/t inadequate drainage (would be unclear since no reimaging until this admission) along with that cx had also grown Bacteroides which would not be adequately covered by the ciprofloxacin. Agree with keeping him on zosyn for now while awaiting further data. Agree with IR drain. Will adjust abx based on culture results. 02/10 I spoke with Micro, results will be back this afternoon CT A/P Pending ABx Zosyn 02/06-present Micro: 01/23 Abscess cx: E coli (waggoner-S) and B fragilis 02/06 BCX: pending # Persistent multiloculated 17cm abscess in RLQ/pelvis # Recent perforated appendicitis s/p lap appendectomy c/b abscess cx with waggoner- sensitive E coli and Bacteroides fragilis - agree with IR drain: please send aerobic and anaerobic cultures - f/u blood cx - continue on zosyn 4.5g IV q8h pending cx results - final abx regimen/duration pending above Follow CT scan Follow Cultures to be back today Outpatient options: Home with IV abx vs. Daily visits to infusion clinic (if able to do once daily IV therapy)--> he would like to go back to local [facility] vs. DC on orals --> Await above results of CT and micro and will be able to give dosing and duration Clari Dillon MD [facility], Division of Infectious Diseases IDConnect: [phone] Admission and Anticipated Discharge Date Admission Date: February 07, 2024 Subjective Subsequent visit was provided via telemedicine using two-way real-time interactive telecommunication between the patient and the telemedicine provider. For the duration of the visit, the provider was performing the assessment from a different facility than the patient. This includesuse of bluetooth stethoscope forauscultationperformed by the telepresenter that the telemedicine provider can hear if described in the physical exam. Senior Sales Operations Manager contact information: Please call [facility] Call Center [phone]. (Phone Number For Physician Use Only) After establishing a telemedicine visit, patient was: Patient was verified with two unique identifiers, Patient/authorized rep acknowledged consent and understanding and Gave permission to continue telehealth session Time Spent with Patient: Subsequent => 35 min Results & Data Vital Signs (Past 12 Hours) Vital Signs Temp Pulse Resp BP Pulse Ox O2 Del Method 02/11/24 07:41 36.6 C 75 16 113/75 98 Room Air Laboratory Results Laboratory Results - last 48 hr 02/10/24 02/11/24 06:14 08:24 WBC 4.62 L 5.07 RBC 4.00 L 4.12 L Hgb 11.1 L 11.5 L Hct 35.3 L 35.6 L MCV 88.3 86.4 MCH 27.8 27.9 MCHC 31.4 L 32.3 RDW Std Deviation 40.5 40.0 RDW Coeff of Trevon 12.5 12.8 Plt Count 366 414 H MPV 8.8 L 9.0 L Immature Gran % (Auto) 0.6 0.6 Neut % (Auto) 52.7 58.7 Lymph % (Auto) 34.4 29.8 [place] % (Auto) 8.4 7.3 Eos % (Auto) 2.8 3.2 Baso % (Auto) 1.1 0.4 Neut # (Auto) 2.43 2.98 Lymph # (Auto) 1.59 1.51 [place] # (Auto) 0.39 0.37 Eos # (Auto) 0.13 0.16 Baso # (Auto) 0.05 0.02 Immature Gran # (Auto) 0.03 0.03 Sodium 140 142 Potassium 3.8 4.0 Chloride 104 105 Carbon Dioxide 29 29 Anion Gap 7 8 BUN 7 7 Creatinine 0.76 0.75 Est Cr Clr Drug Dosing 183.2 185.7 Est GFR ( Amer) > 150.0 > 150.0 Est GFR (Non-Af Amer) 132.3 133.0 BUN/Creatinine Ratio 9.2 L 9.3 L Glucose 91 89 Calcium 9.6 9.8 Microbiology 02/08/24 12:51 Abdomen Gram Stain - Final 02/08/24 12:51 Abdomen Aerobic and Anaerobic Culture - Preliminary Pin-point growth present, reincubating. 02/07/24 18:16 Blood Aerobic Blood Culture - Preliminary No growth in Aerobic bottle after 48 hours. 02/07/24 18:16 Blood Anaerobic Blood Culture - Preliminary No growth in Anaerobic bottle after 48 hours. 02/07/24 17:17 Blood Aerobic Blood Culture - Preliminary No growth in Aerobic bottle after 48 hours. 02/07/24 17:17 Blood Anaerobic Blood Culture - Preliminary No growth in Anaerobic bottle after 48 hours. Medications Administered Current Inpatient Medications Diphenhydramine HCl (Diphenhydramine Capsule 25 Mg Cap) 25 mg PO Q4H PRN PRN Reason: hives, itching or insomnia Stop: 03/08/24 21:50 Enoxaparin Sodium (Enoxaparin Inj 40 Mg/0.4 Ml Syr) 40 mg SQ HS ENRIQUETA Stop: 03/08/24 21:50 Last Admin: 02/10/24 21:50 Dose: 40 mg Promethazine HCl 12.5 mg/ (Sodium Chloride) 50.5 mls @ 204 mls/hr IV Q6H PRN PRN Reason: Nausea And Vomiting Stop: 03/08/24 21:50 Piperacillin Sod/Tazobactam (Sod 4.5 gm/ Dextrose) 100 mls @ 25 mls/hr IV Q8H ENRIQUETA; Protocol Stop: 02/18/24 00:00 Last Admin: 02/11/24 08:54 Dose: 25 mls/hr Ketorolac Tromethamine (Ketorolac 30 Mg/Ml Vial) 30 mg IV Q6H PRN PRN Reason: Pain & Pre PT Stop: 02/12/24 21:50 Last Admin: 02/08/24 20:01 Dose: 30 mg Morphine Sulfate (Morphine Sulfate 2 Mg/Ml Carp) 2 mg IV Q3H PRN PRN Reason: Pain (1,2,3,4,5) & Pre PT Stop: 02/21/24 21:50 Last Admin: 02/08/24 13:44 Dose: 2 mg Ondansetron HCl (Ondansetron Inj 2 Mg/Ml 2 Ml Vial) 4 mg IV Q4H PRN PRN Reason: Nausea And Vomiting Stop: 03/08/24 21:50 Oxycodone/Acetaminophen (Oxycodone/Acetaminophen 5mg/325mg Tab) 2 tab PO Q4H PRN PRN Reason: SEVERE Pain (7,8,9,10) Stop: 02/21/24 21:50 Oxycodone/Acetaminophen (Oxycodone/Acetaminophen 5mg/325mg Tab) 1 tab PO Q4H PRN PRN Reason: MODERATE Pain (4,5,6) & Pre PT Stop: 02/21/24 21:50 (2) Leukocytosis Leukocytosis type: unspecified Qualified Code(s): D72.829 - Elevated white blood cell count, unspecified (3) Abdominal pain Abdominal location: unspecified location Qualified Code(s): R10.9 - Unspecified abdominal pain
--- NOTE | 2024-02-11 12:06 | CT Scan Report ---
CT OF THE ABDOMEN AND PELVIS WITH CONTRAST CLINICAL HISTORY: Evaluated abdominal abscess. COMPARISON STUDY: CT of the abdomen and pelvis February 07, 2024. TECHNIQUE: Following IV administration of 88 mL of Optiray, axial images of the abdomen and pelvis we re obtained from the lung bases to the proximal femurs. Images were reviewed in the axial, sagittal, and coronal planes. IV contrast was administered without complication. Automated exposure control wa s utilized for the study. A dose lowering technique was utilized adhering to the principles of ALARA . CT DOSE: 1576.64 mGy.cm FINDINGS: Lung bases are unremarkable. No pneumatosis, free air or portal venous gas is present. Live r, spleen, adrenal glands, kidneys and pancreas are unremarkable. There is no biliary or pancreatic d uctal dilatation. There is no evidence for a bowel obstruction. Postoperative findings consistent wit h appendectomy are again noted. There has been interval placement of a right lower quadrant percutane ous drain within the previously described fluid collection. The fluid collection has nearly completel y resolved. A small residual left pelvic component measures 2.9 x 1.7 cm. Adjacent inflammation has i mproved. Lymphadenopathy is similar and likely reactive. No new fluid collections are present. Bladde r wall thickening is again noted. This is accentuated by underdistention. IMPRESSION: Significant improvement since CT of February 07, 2024. Near-complete resolution of the absc ess following percutaneous drain placement. Small residual left pelvic component. Interval improvemen t in associated inflammation. No new fluid collections. ACT 112: Negative or not required by law. Electronically signed by: Lalo Fernandez M.D. 02/11/2024 12:05 PM
[2024-02-12 07:27] LABS: Basophils # (auto) 0.04 K/uL (0.00-0.20); Basophils % (auto) 0.7 %; Eosinophils # (auto) 0.17 K/uL (0.00-0.50); Eosinophils % (auto) 3.2 %; Hematocrit (blood only) 35.5 % (42.0-52.0); Hemoglobin 11.6 g/dl (14.0-18.0); Immature Granulocytes # (auto) 0.04 K/uL (0.01-0.20); Immature Granulocytes % (auto) 0.7 %; Lymphocytes # (auto) 1.53 K/uL (1.20-3.40); Lymphocytes % (auto) 28.5 %; Mean Corpuscular Hemoglobin 28.2 pg (25.0-34.0); Mean Corpuscular Hgb Conc 32.7 g/dL (32.0-36.0); Mean Corpuscular Volume 86.2 fL (80.0-100.0); Monocytes # (auto) 0.48 K/uL (0.11-0.59); Monocytes % (auto) 8.9 %; Neutrophils # (auto) 3.11 K/uL (1.40-6.50); Platelet Count 385 K/uL (130-400); RDW Coefficient of Variation 12.9 % (11.5-14.5); Red Blood Count 4.12 M/uL (4.70-6.10); White Blood Count 5.37 K/ul (4.8-10.8)
--- NOTE | 2024-02-12 07:47 | Surgery Progress Note ---
Date of Service February 12, 2024 Assessment & Plan (1) Abscess, intra-abdominal, postoperative: Plan: Patient here s/p IR drainage of abdominal abscess, h/o lap appy for perforated appendicitis WBC 5. Vitals are stable and pt is afebrile IR drain with very small amount of output at this point Repeat CT scan yesterday showed near complete resolution of abdominal fluid collection at this point Awaiting ID's final antibiotic regimen/duration. Cultures growing bacteroides Will send home with IR drain Planning for home today as soon as ID provides their final recs F/u with Dr. Voss in clinic within 1 week as above. doing well. ct looks good. d/c after ID rec's Admission and Anticipated Discharge Date Admission Date: February 07, 2024 Subjective Patient reports feeling well. Pain controlled. Tolerating a diet, no nausea/vomiting. + bowel function. No complaints. Hopeful for discharge today. Physical Exam Physical Exam: awake/alert, no distress Respiratory: normal respiratory effort Gastrointestinal (Abdomen): Inspection/Auscultation: + abdominal surgical incision (c/d/i) and + abdominal surgical drain present Percussion/Palpation: + abdomen tender (mild lower abdominal discomfort to palpation ) and abdomen soft drain in place with small amount of light brown/pinkish fluid Results & Data Vital Signs (Past 12 Hours) Vital Signs Temp Pulse Resp BP Pulse Ox O2 Del Method 02/11/24 21:05 98.1 F 84 18 107/69 96 Room Air PG Care Time/CCT Total # of Minutes Spent Total Time Spent with Patient: Total time spent is greater than 50% in coordination of care (as documented) at patient's floor/unit and/or counseling patient: Coding Level of Care Code 56810 Post Operative Follow-Up Diagnoses Abscess, intra-abdominal, postoperative T81.43XA
[2024-02-12 07:48] LABS: BUN Creatinine Ratio 11.6 (10-20); Calcium 9.8 mg/dl (8.6-10.3); Creatinine Clr Calc Pharmacy 161.9 ml/min; Est GFR (African American) 145.7 ml/min; Est GFR (Non-African American) 125.7 ml/min; Potassium 4.2 mmol/L (3.5-5.1)
--- NOTE | 2024-02-12 09:34 | Infectious Disease Progress Nt ---
Date of Service February 12, 2024 Assessment & Plan (1) Abscess, intra-abdominal, postoperative: (2) Leukocytosis: (3) Abdominal pain: (4) History of appendicitis: Plan 18yo M with h/o recent admission 01/14-01/16 with acute appendicitis s/p laparoscopic appendectomy on 01/14 with intraoperative findings of perforated appendix, dcd on augmentin 10d, readmission 01/22-01/27 with large RLQ abscess extending into pelvis s/p IR drain on 01/23 (output appeared to be c/w hematoma, cx with waggoner-S E coli and B fragilis) and discharged on ciprofloxacin x 14d with eot 02/10 (note no ID involvement during these admission), drain removed outpatient on 01/31, who now presented on 02/06 with RLQ pain and fever to 101.3. Here he has been afebrile, tachycardic, BP stable. Initial labs with WBC 17.19, Cr 0.84, AST/ALT wnl. CRP 17.25, PCT 0.16. UA negative. RPP negative. CTAP with appendectomy with persistent thick-walled multiloculated abscess in the abdominal right lower quadrant extending into the pelvis measuring up to 17 cm; reactive LAD and bowel wall thickening, splenomegaly, cystitis. He has been getting zosyn. Planned for IR drain today. ID consulted 02/07 for assistance. Recurrence of abscess, possibly d/t inadequate drainage (would be unclear since no reimaging until this admission) along with that cx had also grown Bacteroides which would not be adequately covered by the ciprofloxacin. Agree with keeping him on zosyn for now while awaiting further data. Agree with IR drain. Will adjust abx based on culture results. 02/10 I spoke with Micro, results will be back this afternoon CT A/P interval placement of a right lower quadrant percutaneous drain within the previously described fluid collection. The fluid collection has nearly completely resolved. A small residual left pelvic component measures 2.9 x 1.7 cm. Adjacent inflammation has improved. Lymphadenopathy is similar and likely reactive. No new fluid collections are present. ABx Zosyn 02/06-present Micro: 01/23 Abscess cx: E coli (waggoner-S) and B fragilis 02/06 BCX: pending 02/06 Abscess Bacteroides fragilis --> per lab "likely strep species also" # Persistent multiloculated 17cm abscess in RLQ/pelvis s/p drainage 02/06 # Recent perforated appendicitis s/p lap appendectomy c/b abscess cx with waggoner- sensitive E coli and Bacteroides fragilis Discussion: At this time his abscess is near resolved. likely augmentin would treat but given he was on this at admission will broaden to cephaolosporin based regimen and flagyl. He is tolerating orals and has no diarrhea therefore can do po, given near resolution of abscess. RECOMMEND Can dc home on Cefadroxil 1 Gram po BID Flagyl 500mg po TID Please give 3 weeks worth of these abx He will need weekly CBC with diff and CMP while on abx If his drain can be pulled then would keep abx on for 1 week post drain removal I d/w patient, mother and primary team All questions answered and AES to abx discussed including taste/nausea/and complete etoh avoidance ID will so please call w questions Clari Dillon MD [facility], Division of Infectious Diseases IDConnect: [phone] Admission and Anticipated Discharge Date Admission Date: February 07, 2024 Subjective Subsequent visit was provided via telemedicine using two-way real-time interactive telecommunication between the patient and the telemedicine provider. For the duration of the visit, the provider was performing the assessment from a different facility than the patient. This includesuse of bluetooth stethoscope forauscultationperformed by the telepresenter that the telemedicine provider can hear if described in the physical exam. Hall Worker contact information: Please call [facility] Connect Call Center . (Phone Number For Physician Use Only) After establishing a telemedicine visit, patient was: Patient was verified with two unique identifiers, Patient/authorized rep acknowledged consent and understanding and Gave permission to continue telehealth session Time Spent with Patient: Subsequent => 35 min Physical Exam Physical Exam: NAD Soft NT ND Drain in place Results & Data Vital Signs (Past 12 Hours) Vital Signs Temp Pulse Resp BP Pulse Ox O2 Del Method 02/12/24 07:56 36.9 C 79 16 113/70 96 Room Air Laboratory Results Laboratory Results - last 48 hr 02/11/24 02/12/24 08:24 06:28 WBC 5.07 5.37 RBC 4.12 L 4.12 L Hgb 11.5 L 11.6 L Hct 35.6 L 35.5 L MCV 86.4 86.2 MCH 27.9 28.2 MCHC 32.3 32.7 RDW Std Deviation 40.0 40.0 RDW Coeff of Trevon 12.8 12.9 Plt Count 414 H 385 MPV 9.0 L 9.0 L Immature Gran % (Auto) 0.6 0.7 Neut % (Auto) 58.7 58.0 Lymph % (Auto) 29.8 28.5 [place] % (Auto) 7.3 8.9 Eos % (Auto) 3.2 3.2 Baso % (Auto) 0.4 0.7 Neut # (Auto) 2.98 3.11 Lymph # (Auto) 1.51 1.53 [place] # (Auto) 0.37 0.48 Eos # (Auto) 0.16 0.17 Baso # (Auto) 0.02 0.04 Immature Gran # (Auto) 0.03 0.04 Sodium 142 141 Potassium 4.0 4.2 Chloride 105 105 Carbon Dioxide 29 29 Anion Gap 8 7 BUN 7 10 Creatinine 0.75 0.86 Est Cr Clr Drug Dosing 185.7 161.9 Est GFR ( Amer) > 150.0 145.7 Est GFR (Non-Af Amer) 133.0 125.7 BUN/Creatinine Ratio 9.3 L 11.6 Glucose 89 83 Calcium 9.8 9.8 Microbiology 02/08/24 12:51 Abdomen Gram Stain - Final 02/08/24 12:51 Abdomen Aerobic and Anaerobic Culture - Preliminary Bacteroides fragilis 02/07/24 18:16 Blood Aerobic Blood Culture - Preliminary No growth in Aerobic bottle after 48 hours. 02/07/24 18:16 Blood Anaerobic Blood Culture - Preliminary No growth in Anaerobic bottle after 48 hours. 02/07/24 17:17 Blood Aerobic Blood Culture - Preliminary No growth in Aerobic bottle after 48 hours. 02/07/24 17:17 Blood Anaerobic Blood Culture - Preliminary No growth in Anaerobic bottle after 48 hours. Medications Administered Current Inpatient Medications Diphenhydramine HCl (Diphenhydramine Capsule 25 Mg Cap) 25 mg PO Q4H PRN PRN Reason: hives, itching or insomnia Stop: 03/08/24 21:50 Enoxaparin Sodium (Enoxaparin Inj 40 Mg/0.4 Ml Syr) 40 mg SQ HS ENRIQUETA Stop: 03/08/24 21:50 Last Admin: 02/11/24 20:09 Dose: 40 mg Promethazine HCl 12.5 mg/ (Sodium Chloride) 50.5 mls @ 204 mls/hr IV Q6H PRN PRN Reason: Nausea And Vomiting Stop: 03/08/24 21:50 Piperacillin Sod/Tazobactam (Sod 4.5 gm/ Dextrose) 100 mls @ 25 mls/hr IV Q8H ENRIQUETA; Protocol Stop: 02/18/24 00:00 Last Admin: 02/12/24 07:59 Dose: 25 mls/hr Ketorolac Tromethamine (Ketorolac 30 Mg/Ml Vial) 30 mg IV Q6H PRN PRN Reason: Pain & Pre PT Stop: 02/12/24 21:50 Last Admin: 02/08/24 20:01 Dose: 30 mg Morphine Sulfate (Morphine Sulfate 2 Mg/Ml Carp) 2 mg IV Q3H PRN PRN Reason: Pain (1,2,3,4,5) & Pre PT Stop: 02/21/24 21:50 Last Admin: 02/08/24 13:44 Dose: 2 mg Ondansetron HCl (Ondansetron Inj 2 Mg/Ml 2 Ml Vial) 4 mg IV Q4H PRN PRN Reason: Nausea And Vomiting Stop: 03/08/24 21:50 Oxycodone/Acetaminophen (Oxycodone/Acetaminophen 5mg/325mg Tab) 2 tab PO Q4H PRN PRN Reason: SEVERE Pain (7,8,9,10) Stop: 02/21/24 21:50 Oxycodone/Acetaminophen (Oxycodone/Acetaminophen 5mg/325mg Tab) 1 tab PO Q4H PRN PRN Reason: MODERATE Pain (4,5,6) & Pre PT Stop: 02/21/24 21:50 (2) Leukocytosis Leukocytosis type: unspecified Qualified Code(s): D72.829 - Elevated white blood cell count, unspecified (3) Abdominal pain Abdominal location: unspecified location Qualified Code(s): R10.9 - Unspecified abdominal pain
--- NOTE | 2024-02-13 14:56 | Discharge Summary ---
Date of Service February 12, 2024 Admission HPI Per Admitting Provider 18-year-old gentleman 3 weeks status post laparoscopic appendectomy for perforated appendicitis. He was readmitted to the hospital a week later with a pelvic abscess. This underwent percutaneous drainage and he was placed on antibiotics. He was discharged home on January 28. He was seen on January 31 and the drain was removed. He continues on Cipro. He returns to the ER with right lower quadrant pain and a fever this afternoon. CT scan demonstrates reaccumulation of the pelvic abscess. His white count is 17. Principal Diagnosis post operative intra-abdominal abscess history of perforated appendicitis Discharge Exam awake/alert, no distress Respiratory normal respiratory effort Gastrointestinal (Abdomen) Inspection/Auscultation: + abdominal surgical incision (c/d/i) and + abdominal surgical drain present Percussion/Palpation: + abdomen tender (mild lower abdominal discomfort to palpation ) and abdomen soft Discharge Data Allergies Allergy/AdvReac Type Severity Reaction Status Date / Time pollen extracts Allergy Sneezing Verified 02/07/24 19:07 Consultations 02/07/24 18:44 ED Decision to Admit Stat 02/08/24 08:43 Consult Infectious Diseases Routine Ordered Studies 02/07/24 17:12 CT abd pelvis IV con only Stat 02/08/24 11:[address] periton/retro w/gdnce Urgent 02/11/24 08:26 CT abd pelvis IV con only Routine Hospital Course (1) Abscess, intra-abdominal, postoperative: This is a 18yM who is s/p laparoscopic appendectomy with Dr. Voss on 01/15/24 for perforated appendicitis, who presented to the [facility] ED on 02/07/24 with abdominal pain and fevers. Of note his post op course was complicated by a post operative abscess and admission for IR drainage. The IR drain was ultimately removed on 01/31 in the office as it was low output. He was doing fairly well until recent when he redeveloped lower abdominal pain and fevers. In the ER a CT a/p was performed that revealed a pelvic abscess measuring up to 17 cm. WBC 17. He was admitted under the surgical service and kept NPO with IVF and started on IV zosyn. Interventional radiology was consulted who placed a drain successfully on 02/07. Fluid was sent off for cultures. Infectious Disease was consulted and followed along during the patient's hospitalization. He remained on IV zosyn while in house. Diet was advanced as tolerated and patient's pain improved. WBC downtrended nicely to normal throughout his stay. On 02/[address] was performed that showed near complete resolution of the fluid collection. Cultures growing bacteroides. ID recommended patient be discharged on cefadroxil and flagyl x 3 weeks. Unfortunately the cefadroxil was not readily available at multiple local pharmacies. They recommended keflex then instead, in addition to the flagyl. The patient was educated regarding IR drain care. He was instructed to follow up with us in the office next sunday for check up, in addition to wkly labs while on abx. He was deemed stable for home on 02/11 with IR drain in place, pain controlled, diet tolerated, and on a course of po abx as above. sepsis, POA should be added to patients diagnosis. (2) History of appendicitis: Total Time Total Time Spent Total Time Spent (In Minutes): 20 Discharge Plan Discharge Items Patient Disposition: Home - Self-Care Reason For Visit: POST OP ABSCESS Discharge Diagnosis: post operative abscess Activity: Per Instructions section Lifting: No more than 25 pounds Bathing Comment: may shower; no soaking in tubs/pools x 2 weeks Exercise/Sports: Wait until after follow-up appointment Driving/Machine Use: Resume 3 days after discharge Non-emergency contact: Surgeon Call non-emergency contact if: you have any medication questions, your symptoms worsen, your pain is worsening, you have a fever, your temperature is above 101.5, your wound has increased redness, your wound has increased drainage and your wound pain has increased Follow-up/Referrals: Atif Voss, [Surgeon] - 02/18/24 2:00 pm (Call to schedule follow up in the office for this upcoming sunday02/18/24) PCP,NO [Primary Care Provider] - Diet: Regular Ambulatory Orders: Complete Blood Count with Diff (Routine) Timeframe: 1 Week Location: Determined by Patient Ordered By: Thelma Dao Comprehensive Metabolic Panel (Routine) Timeframe: 1 Week Location: Determined by Patient Ordered By: Thelma Dao Addtl Attending Provider Instructions: Please care for your drain as you have been instructed prior to discharge from the hospital. Calculate daily output and bring a log with you to your follow up appointment You may purchase Tylenol and/or Ibuprofen over the counter if needed for additional pain control over the next few days. Take per manufacturers instructions You have skin glue over your incisions called dermabond. you may shower with this on. It will tend to dissolve and fall off within a couple weeks. Do not pick at the skin glue Please complete the full course of antibiotic prescribed to you You will need your blood drawn weekly while on antibiotics for a CBC and CMP. this may be performed at the hospital's lab. check in at the registration desk when you are ready for your blood to be drawn Pending Studies at Discharge: Yes Studies:: microbiology Stand-Alone Forms: My [facility], Work/School Release, Smoking Cessation Medications and DC Order Prescriptions: New metronidazole 500 mg tablet 500 mg PO Q8H 21 Days Qty: 63 0RF cefadroxil 1 gram tablet 1,000 mg PO BID 21 Days Qty: 42 0RF Continued acetaminophen [Tylenol Extra Strength] 500 mg Tablet 1,000 mg PO Q6H PRN (Reason: Pain) Discontinued ciprofloxacin HCl 500 mg tablet 500 mg PO Q12H Rx Instructions: STARTED 01/28/24 FOR 14 DAYS. No Action cephalexin 500 mg capsule 1,000 mg PO Q6H 3 Days Qty: 12 0RF Discharge Orders: Discharge Order (Routine); Ordered 02/12/24 Ordered By: Thelma Dao Admission Data Admit Date/Time: 02/07/24 18:46 Attending Provider: Atif Voss Admit Provider: Wilton Vivas Primary Care Provider: PCP,NO Other Providers: Wilton Vivas; Ria Tyler; Katya Negron; Ebony Camp; Clari Dillon; Chata Diaz; Cele Ames; Kirstin Quiles; Emily Rosales Other Interventions: Discharge Summary Assessment (RN) Last Done: 02/12/24 10:34 Coding Level of Care Code 25081 IN/OBS DISCH 30 MIN/LESS Diagnoses Abscess, intra-abdominal, postoperative T81.43XA History of appendicitis Z87.19
== END 2024-02-12 11:15 | disposition home or self-care (01) | DRG 862 ==
LOC: ED 17:03 → 3W 18:46